=== PATIENT | female | born 1935 | race Caucasian/White ===

== ENCOUNTER → 2016-10-07 | Outpatient (REF) | payer MEDICARE, MEDICAID ==
[~2016-10-07] MED LIST: ASPI81TA83 OR; ATEN25TA OR; CALCIUM/VITAMIN D PO; CELE20TA OR; COLA100C2 OR; IBUP600T OR; LANTUS SOLOSTAR PEN SC; LOPERAMIDE PO; LORA0.5T OR; MAALSUS PO; MILKSUS OR; MIRALEX PO; MULTIVIT PO; NITRO STAT SL; PAIN325T OR; PLAV75TA2 OR; RANO5TAB OR; ROBISYP3 PO; ZOCO40TA OR
[2016-10-07 09:42] LABS: BASO % 0.4 % (0.0-1.0); EOS # 0.4 K/mm3 (0.0-0.50); LARGE UNSTAINED CELL # 0.3 K/mm3 (0.0-0.4); LARGE UNSTAINED CELL % 2.4 % (0.0-4.0); LYMPH # 3.8 K/mm3 (1.5-4.5); LYMPH % 32.5 % (24.0-44.0); MEAN CORPUSCULAR HGB CONC 32.4 g/dl (32.0-36.5); MEAN CORPUSCULAR VOLUME 92.7 fl (80.0-96.0); MONO # 0.6 K/mm3 (0.0-0.8); MONO % 5.7 % (0.0-5.0); PLATELET COUNT, AUTOMATED 157 k/mm3 (150-450); RED CELL DISTRIBUTION WIDTH 13.6 % (11.5-14.5); WHITE BLOOD COUNT 10.9 K/mm3 (4.0-10.0)
[2016-10-07 10:03] LABS: ALBUMIN 2.5 GM/DL (3.2-5.2); ALBUMIN/GLOBULIN RATIO 0.71 (1.00-1.93); ALKALINE PHOSPHATASE 63 U/L (45-117); ALT/SGPT 13 U/L (12-78); ANION GAP 10 MEQ/L (8-16); AST/SGOT 17 U/L (15-37); BILIRUBIN,TOTAL 0.3 MG/DL (0.2-1.0); BLOOD UREA NITROGEN 22 MG/DL (7-18); CALCIUM LEVEL 8.3 MG/DL (8.8-10.2); CARBON DIOXIDE LEVEL 29 MEQ/L (21-32); CHLORIDE LEVEL 105 MEQ/L (98-107); CHOLESTEROL LEVEL 128 MG/DL (<200); GLOMERULAR FILTRATION RATE > 60.0 (>32); GLUCOSE, FASTING 127 MG/DL (83-110); POTASSIUM SERUM 4.4 MEQ/L (3.5-5.1); SODIUM LEVEL 144 MEQ/L (136-145); TRIGLYCERIDES LEVEL 191 MG/DL (<150)
== END ==
LOC: SKLAB4 09:19
PROVIDERS: ATTEND Family Medicine
DX: E11.9 Type 2 diabetes mellitus without complications (principal); E03.9 Hypothyroidism, unspecified; I10 Essential (primary) hypertension

== ENCOUNTER → 2016-12-30 | Outpatient (REF) | payer MEDICARE, MEDICAID ==
[2016-12-30 08:50] LABS: ALBUMIN 2.4 GM/DL (3.2-5.2); ALBUMIN/GLOBULIN RATIO 0.59 (1.00-1.93); ALKALINE PHOSPHATASE 62 U/L (45-117); ALT/SGPT 14 U/L (12-78); ANION GAP 6 MEQ/L (8-16); AST/SGOT 16 U/L (15-37); BILIRUBIN,TOTAL 0.3 MG/DL (0.2-1.0); BLOOD UREA NITROGEN 23 MG/DL (7-18); CALCIUM LEVEL 8.3 MG/DL (8.8-10.2); CARBON DIOXIDE LEVEL 29 MEQ/L (21-32); CHLORIDE LEVEL 107 MEQ/L (98-107); CHOLESTEROL LEVEL 123 MG/DL (<200); CREATININE FOR GFR 0.88 MG/DL (0.55-1.02); GLOMERULAR FILTRATION RATE > 60.0 (>32); GLUCOSE, FASTING 120 MG/DL (83-110); SODIUM LEVEL 142 MEQ/L (136-145); TOTAL PROTEIN 6.5 GM/DL (6.4-8.2); TRIGLYCERIDES LEVEL 155 MG/DL (<150)
== END ==
LOC: SKLAB4 11:37
PROVIDERS: ATTEND Family Medicine
DX: I25.10 Atherosclerotic heart disease of native coronary artery without angina pectoris (principal); E11.9 Type 2 diabetes mellitus without complications; E78.5 Hyperlipidemia, unspecified

== ENCOUNTER → 2017-04-07 | Outpatient (REF) | payer MEDICARE, MEDICAID ==
[2017-04-07 08:53] LABS: BASO % 0.4 % (0.0-1.0); EOS # 0.4 K/mm3 (0.0-0.50); EOS % 4.7 % (0.0-3.0); LARGE UNSTAINED CELL # 0.3 K/mm3 (0.0-0.4); LARGE UNSTAINED CELL % 3.4 % (0.0-4.0); LYMPH # 3.4 K/mm3 (1.5-4.5); LYMPH % 36.1 % (24.0-44.0); MEAN CORPUSCULAR HEMOGLOBIN 30.7 pg (27.0-33.0); MEAN CORPUSCULAR HGB CONC 33.2 g/dl (32.0-36.5); MEAN CORPUSCULAR VOLUME 92.6 fl (80.0-96.0); MONO # 0.7 K/mm3 (0.0-0.8); MONO % 7.1 % (0.0-5.0); NEUTROPHILS # 4.5 K/mm3 (1.8-7.7); NEUTROPHILS % 48.3 % (36.0-66.0); PLATELET COUNT, AUTOMATED 178 k/mm3 (150-450); RED CELL DISTRIBUTION WIDTH 12.1 % (11.5-14.5); WHITE BLOOD COUNT 9.4 K/mm3 (4.0-10.0)
[2017-04-07 09:38] LABS: ALBUMIN 2.6 GM/DL (3.2-5.2); ALBUMIN/GLOBULIN RATIO 0.76 (1.00-1.93); ALKALINE PHOSPHATASE 57 U/L (45-117); ALT/SGPT 13 U/L (12-78); ANION GAP 9 MEQ/L (8-16); AST/SGOT 15 U/L (15-37); BILIRUBIN,TOTAL 0.2 MG/DL (0.2-1.0); BLOOD UREA NITROGEN 24 MG/DL (7-18); CALCIUM LEVEL 8.3 MG/DL (8.8-10.2); CARBON DIOXIDE LEVEL 27 MEQ/L (21-32); CHLORIDE LEVEL 106 MEQ/L (98-107); CHOLESTEROL LEVEL 115 MG/DL (<200); GLOMERULAR FILTRATION RATE > 60.0 (>32); GLUCOSE, FASTING 156 MG/DL (83-110); POTASSIUM SERUM 4.3 MEQ/L (3.5-5.1); SODIUM LEVEL 142 MEQ/L (136-145); TRIGLYCERIDES LEVEL 215 MG/DL (<150)
== END ==
LOC: SKLAB4 10:02
PROVIDERS: ATTEND Family Medicine
DX: E78.5 Hyperlipidemia, unspecified (principal); E11.9 Type 2 diabetes mellitus without complications; E03.9 Hypothyroidism, unspecified

== ENCOUNTER → 2017-06-02 | Outpatient (REF) | payer MEDICARE, MEDICAID ==
[2017-06-02 08:40] LABS: BASO % 0.3 % (0.0-1.0); EOS # 0.4 10^3/uL (0.0-0.50); IMMATURE GRANULOCYTE % 0.3 % (0-0); LYMPH % 32.9 % (24.0-44.0); MEAN CORPUSCULAR HEMOGLOBIN 30.1 pg (27.0-33.0); MEAN CORPUSCULAR HGB CONC 32.8 g/dl (32.0-36.5); MEAN CORPUSCULAR VOLUME 91.7 fl (80.0-96.0); MONO # 0.9 10^3/uL (0.0-0.8); MONO % 9.7 % (0.0-5.0); NEUTROPHILS # 4.8 10^3/uL (1.8-7.7); NEUTROPHILS % 52.8 % (36.0-66.0); PLATELET COUNT, AUTOMATED 145 10^3/uL (150-450); RED CELL DISTRIBUTION WIDTH 12.4 % (11.5-14.5); WHITE BLOOD COUNT 9.1 10^3/uL (4.0-10.0)
== END ==
LOC: SKLAB4 09:55
PROVIDERS: ATTEND Family Medicine
DX: E04.9 Nontoxic goiter, unspecified (principal)

== ENCOUNTER → 2017-07-07 | Outpatient (REF) | payer MEDICARE, MEDICAID ==
[2017-07-07 08:51] LABS: ALBUMIN 2.6 GM/DL (3.2-5.2); ALBUMIN/GLOBULIN RATIO 0.67 (1.00-1.93); ALKALINE PHOSPHATASE 67 U/L (45-117); ALT/SGPT 13 U/L (12-78); ANION GAP 7 MEQ/L (8-16); AST/SGOT 13 U/L (7-37); BILIRUBIN,TOTAL 0.2 MG/DL (0.2-1.0); BLOOD UREA NITROGEN 17 MG/DL (7-18); CALCIUM LEVEL 8.2 MG/DL (8.8-10.2); CARBON DIOXIDE LEVEL 29 MEQ/L (21-32); CHLORIDE LEVEL 104 MEQ/L (98-107); CHOLESTEROL LEVEL 119 MG/DL (<200); CREATININE FOR GFR 0.79 MG/DL (0.55-1.02); GLOMERULAR FILTRATION RATE > 60.0 (>32); GLUCOSE, FASTING 143 MG/DL (83-110); POTASSIUM SERUM 4.1 MEQ/L (3.5-5.1); SODIUM LEVEL 140 MEQ/L (136-145); TOTAL PROTEIN 6.5 GM/DL (6.4-8.2); TRIGLYCERIDES LEVEL 198 MG/DL (<150)
== END ==
LOC: SKLAB4 12:43
PROVIDERS: ATTEND Family Medicine
DX: G20 Parkinson's disease (principal); E11.9 Type 2 diabetes mellitus without complications; E78.5 Hyperlipidemia, unspecified

== ENCOUNTER → 2017-09-01 | Outpatient (REF) | payer MEDICARE, MEDICAID ==
[2017-09-01 10:09] LABS: BASO % 0.4 % (0.0-1.0); EOS # 0.3 10^3/uL (0.0-0.50); EOS % 2.9 % (0.0-3.0); HEMATOCRIT 39.2 % (36.0-47.0); HEMOGLOBIN 12.6 g/dl (12.0-16.0); IMMATURE GRANULOCYTE % 0.4 % (0-0); LYMPH % 29.1 % (24.0-44.0); MEAN CORPUSCULAR HEMOGLOBIN 29.9 pg (27.0-33.0); MEAN CORPUSCULAR HGB CONC 32.1 g/dl (32.0-36.5); MEAN CORPUSCULAR VOLUME 92.9 fl (80.0-96.0); MONO # 0.9 10^3/uL (0.0-0.8); MONO % 8.9 % (0.0-5.0); NEUTROPHILS % 58.3 % (36.0-66.0); PLATELET COUNT, AUTOMATED 160 10^3/uL (150-450); RED BLOOD COUNT 4.22 10^6/uL (4.00-5.40); RED CELL DISTRIBUTION WIDTH 12.5 % (11.5-14.5); WHITE BLOOD COUNT 10.3 10^3/uL (4.0-10.0)
== END ==
LOC: SKLAB4 12:24
DX: D64.9 Anemia, unspecified (principal); E03.9 Hypothyroidism, unspecified
CPT/HCPCS: 84443

== ENCOUNTER → 2017-10-13 | Outpatient (REF) | payer MEDICARE, MEDICAID ==
[2017-10-13 08:34] LABS: ALBUMIN 2.5 GM/DL (3.2-5.2); ALBUMIN/GLOBULIN RATIO 0.76 (1.00-1.93); ALKALINE PHOSPHATASE 66 U/L (45-117); ALT/SGPT 14 U/L (12-78); ANION GAP 7 MEQ/L (8-16); AST/SGOT 20 U/L (7-37); BILIRUBIN,TOTAL 0.2 MG/DL (0.2-1.0); BLOOD UREA NITROGEN 21 MG/DL (7-18); CALCIUM LEVEL 7.8 MG/DL (8.8-10.2); CARBON DIOXIDE LEVEL 28 MEQ/L (21-32); CHLORIDE LEVEL 107 MEQ/L (98-107); CHOLESTEROL LEVEL 119 MG/DL (<200); CHOLESTEROL RISK RATIO 3.838 (<5); GLOMERULAR FILTRATION RATE > 60.0 (>32); GLUCOSE, FASTING 122 MG/DL (70-100); HDL CHOLESTEROL 31 MG/DL (>40); NON-HDL-C 88 MG/DL; POTASSIUM SERUM 4.2 MEQ/L (3.5-5.1); SODIUM LEVEL 142 MEQ/L (136-145); TOTAL PROTEIN 5.8 GM/DL (6.4-8.2); TRIGLYCERIDES LEVEL 175 MG/DL (<150)
[2017-10-13 09:55] LABS: ESTIMATED AVERAGE GLUCOSE 163 MG/DL (60-110); HEMOGLOBIN A1c 7.3 %
== END ==
LOC: SKLAB4 10:54
DX: E78.5 Hyperlipidemia, unspecified (principal); E11.9 Type 2 diabetes mellitus without complications
CPT/HCPCS: 80053

== ENCOUNTER → 2018-01-05 | Outpatient (REF) | payer MEDICARE, MEDICAID ==
[2018-01-05 09:39] LABS: ALBUMIN 2.7 GM/DL (3.2-5.2); ALBUMIN/GLOBULIN RATIO 0.79 (1.00-1.93); ALKALINE PHOSPHATASE 72 U/L (45-117); ALT/SGPT 14 U/L (12-78); ANION GAP 7 MEQ/L (8-16); AST/SGOT 15 U/L (7-37); BILIRUBIN,TOTAL 0.3 MG/DL (0.2-1.0); BLOOD UREA NITROGEN 18 MG/DL (7-18); CALCIUM LEVEL 8.4 MG/DL (8.8-10.2); CARBON DIOXIDE LEVEL 29 MEQ/L (21-32); CHLORIDE LEVEL 107 MEQ/L (98-107); CHOLESTEROL LEVEL 123 MG/DL (<200); CHOLESTEROL RISK RATIO 4.392 (<5); GLOMERULAR FILTRATION RATE > 60.0 (>32); GLUCOSE, FASTING 109 MG/DL (70-100); HDL CHOLESTEROL 28 MG/DL (>40); LDL CHOLESTEROL 47.2 MG/DL (<100); NON-HDL-C 95 MG/DL; POTASSIUM SERUM 4.3 MEQ/L (3.5-5.1); SODIUM LEVEL 143 MEQ/L (136-145); TOTAL PROTEIN 6.1 GM/DL (6.4-8.2); TRIGLYCERIDES LEVEL 239 MG/DL (<150)
[2018-01-05 10:56] LABS: ESTIMATED AVERAGE GLUCOSE 166 MG/DL (60-110); HEMOGLOBIN A1c 7.4 %
== END ==
LOC: SKLAB4 09:32
DX: E78.5 Hyperlipidemia, unspecified (principal); E11.9 Type 2 diabetes mellitus without complications
CPT/HCPCS: 80053

== ENCOUNTER → 2018-03-09 | Outpatient (REF) | payer MEDICARE, MEDICAID ==
[2018-03-09 08:34] LABS: BASO % 0.3 % (0.0-1.0); EOS # 0.1 10^3/uL (0.0-0.50); HEMATOCRIT 39.2 % (36.0-47.0); IMMATURE GRANULOCYTE % 0.4 % (0-3.0); LYMPH # 2.8 10^3/uL (1.5-4.5); LYMPH % 24.5 % (24.0-44.0); MEAN CORPUSCULAR HEMOGLOBIN 30.3 pg (27.0-33.0); MEAN CORPUSCULAR HGB CONC 33.2 g/dl (32.0-36.5); MEAN CORPUSCULAR VOLUME 91.4 fl (80.0-96.0); MONO % 8.4 % (0.0-5.0); NEUTROPHILS # 7.6 10^3/uL (1.8-7.7); NEUTROPHILS % 65.4 % (36.0-66.0); PLATELET COUNT, AUTOMATED 159 10^3/uL (150-450); RED BLOOD COUNT 4.29 10^6/uL (4.00-5.40); RED CELL DISTRIBUTION WIDTH 12.8 % (11.5-14.5); WHITE BLOOD COUNT 11.6 10^3/uL (4.0-10.0)
== END ==
LOC: SKLAB4 09:53
DX: G20 Parkinson's disease (principal)
CPT/HCPCS: 84443

== ENCOUNTER → 2018-03-10 | Outpatient (REF) | payer MEDICARE, MEDICAID ==
[2018-03-10 07:32] LABS: HEMATOCRIT 42.9 % (36.0-47.0); MEAN CORPUSCULAR HEMOGLOBIN 30.1 pg (27.0-33.0); MEAN CORPUSCULAR HGB CONC 32.6 g/dl (32.0-36.5); MEAN CORPUSCULAR VOLUME 92.3 fl (80.0-96.0); PLATELET COUNT, AUTOMATED 185 10^3/uL (150-450); RED BLOOD COUNT 4.65 10^6/uL (4.00-5.40); WHITE BLOOD COUNT 11.2 10^3/uL (4.0-10.0)
== END ==
LOC: SKLAB4 08:00
DX: I10 Essential (primary) hypertension (principal)
CPT/HCPCS: 36415

== ENCOUNTER → 2018-07-06 | Outpatient (REF) | payer MEDICARE, MEDICAID ==
[2018-07-06 09:05] LABS: ALBUMIN 2.6 GM/DL (3.2-5.2); ALBUMIN/GLOBULIN RATIO 0.63 (1.00-1.93); ALKALINE PHOSPHATASE 72 U/L (45-117); ALT/SGPT 16 U/L (12-78); ANION GAP 7 MEQ/L (8-16); AST/SGOT 17 U/L (7-37); BILIRUBIN,TOTAL 0.3 MG/DL (0.2-1.0); BLOOD UREA NITROGEN 19 MG/DL (7-18); CALCIUM LEVEL 8.8 MG/DL (8.8-10.2); CARBON DIOXIDE LEVEL 25 MEQ/L (21-32); CHLORIDE LEVEL 104 MEQ/L (98-107); CHOLESTEROL LEVEL 129 MG/DL (<200); CHOLESTEROL RISK RATIO 4.161 (<5); GLOMERULAR FILTRATION RATE > 60.0 (>32); GLUCOSE, FASTING 120 MG/DL (70-100); HDL CHOLESTEROL 31 MG/DL (>40); LDL CHOLESTEROL 55 MG/DL (<100); NON-HDL-C 98 MG/DL; POTASSIUM SERUM 4.2 MEQ/L (3.5-5.1); SODIUM LEVEL 136 MEQ/L (136-145); TOTAL PROTEIN 6.7 GM/DL (6.4-8.2); TRIGLYCERIDES LEVEL 216 MG/DL (<150)
[2018-07-06 12:10] LABS: ESTIMATED AVERAGE GLUCOSE 194 MG/DL (60-110); HEMOGLOBIN A1c 8.4 %
== END ==
LOC: SKLAB4 09:45
DX: E78.5 Hyperlipidemia, unspecified (principal); E11.9 Type 2 diabetes mellitus without complications
CPT/HCPCS: 80053

== ENCOUNTER → 2018-09-07 | Outpatient (REF) | payer MEDICARE, MEDICAID ==
[2018-09-07 07:47] LABS: BASO % 0.3 % (0.0-1.0); EOS # 0.4 10^3/uL (0.0-0.50); EOS % 3.9 % (0.0-3.0); HEMATOCRIT 40.4 % (36.0-47.0); HEMOGLOBIN 13.1 g/dl (12.0-15.5); LYMPH # 3.5 10^3/uL (1.5-4.5); LYMPH % 38.1 % (24.0-44.0); MEAN CORPUSCULAR HEMOGLOBIN 30.3 pg (27.0-33.0); MEAN CORPUSCULAR HGB CONC 32.4 g/dl (32.0-36.5); MEAN CORPUSCULAR VOLUME 93.3 fl (80.0-96.0); MONO % 10.5 % (0.0-5.0); NEUTROPHILS # 4.3 10^3/uL (1.8-7.7); NEUTROPHILS % 46.9 % (36.0-66.0); PLATELET COUNT, AUTOMATED 166 10^3/uL (150-450); RED BLOOD COUNT 4.33 10^6/uL (4.00-5.40); WHITE BLOOD COUNT 9.2 10^3/uL (4.0-10.0)
== END ==
LOC: SKLAB4 10:07
PROVIDERS: ATTEND Family Medicine
DX: F03.90 Unspecified dementia, unspecified severity, without behavioral disturbance, psychotic disturbance, mood disturbance, and anxiety (principal); G20 Parkinson's disease; I10 Essential (primary) hypertension

== ENCOUNTER → 2018-10-12 | Outpatient (REF) | payer MEDICARE, MEDICAID ==
[2018-10-12 08:14] LABS: HEMOGLOBIN A1c 9.6 %
[2018-10-12 08:25] LABS: ALBUMIN 2.8 GM/DL (3.2-5.2); ALT/SGPT 14 U/L (12-78); BILIRUBIN,TOTAL 0.3 MG/DL (0.2-1.0); BLOOD UREA NITROGEN 24 MG/DL (7-18); CALCIUM LEVEL 8.2 MG/DL (8.8-10.2); CARBON DIOXIDE LEVEL 31 MEQ/L (21-32); CHLORIDE LEVEL 103 MEQ/L (98-107); CHOLESTEROL LEVEL 141 MG/DL (<200); CHOLESTEROL RISK RATIO 4.548 (<5); CREATININE FOR GFR 0.88 MG/DL (0.55-1.30); GLOMERULAR FILTRATION RATE > 60.0 (>32); GLUCOSE, FASTING 121 MG/DL (70-100); HDL CHOLESTEROL 31 MG/DL (>40); LDL CHOLESTEROL 61 MG/DL (<100); NON-HDL-C 110 MG/DL; POTASSIUM SERUM 4.4 MEQ/L (3.5-5.1); SODIUM LEVEL 141 MEQ/L (136-145); TOTAL PROTEIN 6.2 GM/DL (6.4-8.2); TRIGLYCERIDES LEVEL 245 MG/DL (<150)
== END ==
LOC: SKLAB4 09:36
PROVIDERS: ATTEND Family Medicine
DX: E78.5 Hyperlipidemia, unspecified (principal); E11.9 Type 2 diabetes mellitus without complications; G20 Parkinson's disease

== ENCOUNTER → 2019-01-04 | Outpatient (REF) | payer MEDICARE, MEDICAID ==
[2019-01-04 11:01] LABS: ALBUMIN 2.5 GM/DL (3.2-5.2); ALT/SGPT 12 U/L (12-78); BILIRUBIN,TOTAL 0.3 MG/DL (0.2-1.0); BLOOD UREA NITROGEN 22 MG/DL (7-18); CALCIUM LEVEL 8.3 MG/DL (8.8-10.2); CARBON DIOXIDE LEVEL 25 MEQ/L (21-32); CHLORIDE LEVEL 105 MEQ/L (98-107); CHOLESTEROL LEVEL 126 MG/DL (<200); CHOLESTEROL RISK RATIO 4.064 (<5); CREATININE FOR GFR 0.91 MG/DL (0.55-1.30); GLOMERULAR FILTRATION RATE > 60.0 (>32); GLUCOSE, FASTING 214 MG/DL (70-100); HDL CHOLESTEROL 31 MG/DL (>40); LDL CHOLESTEROL 62 MG/DL (<100); NON-HDL-C 95 MG/DL; POTASSIUM SERUM 4.4 MEQ/L (3.5-5.1); SODIUM LEVEL 138 MEQ/L (136-145); TOTAL PROTEIN 6.3 GM/DL (6.4-8.2); TRIGLYCERIDES LEVEL 167 MG/DL (<150)
[2019-01-04 11:37] LABS: HEMOGLOBIN A1c 8.9 %
== END ==
LOC: SKLAB4 11:46
PROVIDERS: ATTEND Family Medicine
DX: E11.9 Type 2 diabetes mellitus without complications (principal); E78.5 Hyperlipidemia, unspecified; G20 Parkinson's disease

== ENCOUNTER → 2019-03-01 | Outpatient (REF) | payer MEDICARE, MEDICAID ==
[2019-03-01 08:34] LABS: BASO # 0.1 10^3/uL (0.0-0.2); BASO % 0.5 % (0.0-1.0); EOS # 0.2 10^3/uL (0.0-0.50); EOS % 2.3 % (0.0-3.0); HEMATOCRIT 41.6 % (36.0-47.0); HEMOGLOBIN 13.8 g/dl (12.0-15.5); LYMPH % 30.5 % (24.0-44.0); MEAN CORPUSCULAR HEMOGLOBIN 30.9 pg (27.0-33.0); MEAN CORPUSCULAR HGB CONC 33.2 g/dl (32.0-36.5); MEAN CORPUSCULAR VOLUME 93.1 fl (80.0-96.0); MONO # 0.9 10^3/uL (0.0-0.8); MONO % 9.3 % (0.0-5.0); NEUTROPHILS # 5.6 10^3/uL (1.8-7.7); NEUTROPHILS % 56.9 % (36.0-66.0); PLATELET COUNT, AUTOMATED 169 10^3/uL (150-450); RED BLOOD COUNT 4.47 10^6/uL (4.00-5.40); WHITE BLOOD COUNT 9.8 10^3/uL (4.0-10.0)
== END ==
LOC: SKLAB4 09:51
PROVIDERS: ATTEND Family Medicine
DX: E03.9 Hypothyroidism, unspecified (principal); G20 Parkinson's disease

== ENCOUNTER → 2019-03-29 | Outpatient (REF) | payer MEDICARE, MEDICAID ==
[2019-03-29 14:07] LABS: HEMATOCRIT 43.5 % (36.0-47.0); HEMOGLOBIN 13.7 g/dl (12.0-15.5); MEAN CORPUSCULAR HEMOGLOBIN 30.6 pg (27.0-33.0); MEAN CORPUSCULAR HGB CONC 31.5 g/dl (32.0-36.5); MEAN CORPUSCULAR VOLUME 97.1 fl (80.0-96.0); PLATELET COUNT, AUTOMATED 159 10^3/uL (150-450); RED BLOOD COUNT 4.48 10^6/uL (4.00-5.40)
[2019-03-29 14:31] LABS: BLOOD UREA NITROGEN 26 MG/DL (7-18); CALCIUM LEVEL 8.4 MG/DL (8.8-10.2); CARBON DIOXIDE LEVEL 28 MEQ/L (21-32); CHLORIDE LEVEL 105 MEQ/L (98-107); CREATININE FOR GFR 0.92 MG/DL (0.55-1.30); GLOMERULAR FILTRATION RATE > 60.0 (>32); GLUCOSE, FASTING 181 MG/DL (70-100); POTASSIUM SERUM 4.1 MEQ/L (3.5-5.1); SODIUM LEVEL 139 MEQ/L (136-145)
== END ==
LOC: SKLAB4 09:25
PROVIDERS: ATTEND Family Medicine
DX: R53.83 Other fatigue (principal); R63.8 Other symptoms and signs concerning food and fluid intake

== ENCOUNTER → 2019-03-30 | Outpatient (REF) | payer MEDICARE, MEDICAID ==
[~2019-03-30] MED LIST changes: +ACET1TAB55 PO; +ALA1CRE TOP; +APAP325T4 PO; +ASPI81TA85 PO; +BISA10SU27 PR; +ENEMENE PR; +INSULADS INJ; +LOPE2TAB12 PO; +MAALSUS19 PO; +METO1TAB32 PO; +MOM30SS PO; +MOXI400T11 PO; +NITR0.4S14 SL; +PREPCRE PR; +SENN-3 PO; +ZINC60OI TOP
[2019-03-30 15:14] LABS: APPEARANCE, URINE HAZY (CLEAR); BACTERIA, URINE AUTO NEGATIVE (NEGATIVE); BILIRUBIN, URINE AUTO NEGATIVE (NEGATIVE); BLOOD, URINE BLOOD 1+ (NEGATIVE); COLOR, URINE YELLOW (YELLOW); GLUCOSE, URINE (UA) AUTO 1+ mg/dL (NEGATIVE); KETONE, URINE AUTO TRACE mg/dL (NEGATIVE); LEUKOCYTE ESTERASE, URINE AUTO NEGATIVE (NEGATIVE); NITRITE, URINE AUTO NEGATIVE (NEGATIVE); PROTEIN, URINE AUTO 1+ mg/dL (NEGATIVE); RBC, URINE AUTO 6 /HPF (0-3); SQUAMOUS EPITHELIAL CELL UR AU 2 /HPF (0-6); UROBILINOGEN, URINE AUTO 0.2 mg/dL (0.0-2.0); WBC, URINE AUTO 28 /HPF (0-3)
== END ==
LOC: SKLAB4 14:35
PROVIDERS: ATTEND Family Medicine
DX: R63.0 Anorexia (principal); Z79.899 Other long term (current) drug therapy

== ENCOUNTER → 2019-04-05 | Outpatient (REF) | payer MEDICARE, MEDICAID ==
[~2019-04-05] MED LIST changes: -ACET1TAB55 PO; -ALA1CRE TOP; -APAP325T4 PO; -ASPI81TA85 PO; -BISA10SU27 PR; -ENEMENE PR; -INSULADS INJ; -LOPE2TAB12 PO; -MAALSUS19 PO; -METO1TAB32 PO; -MOM30SS PO; -MOXI400T11 PO; -NITR0.4S14 SL; -PREPCRE PR; -SENN-3 PO; -ZINC60OI TOP
[2019-04-05 09:57] LABS: ALBUMIN 2.7 GM/DL (3.2-5.2); ALT/SGPT 13 U/L (12-78); BILIRUBIN,TOTAL 0.3 MG/DL (0.2-1.0); BLOOD UREA NITROGEN 20 MG/DL (7-18); CALCIUM LEVEL 8.6 MG/DL (8.8-10.2); CARBON DIOXIDE LEVEL 33 MEQ/L (21-32); CHLORIDE LEVEL 103 MEQ/L (98-107); CHOLESTEROL LEVEL 135 MG/DL (<200); CREATININE FOR GFR 0.83 MG/DL (0.55-1.30); GLOMERULAR FILTRATION RATE > 60.0 (>32); GLUCOSE, FASTING 153 MG/DL (70-100); HDL CHOLESTEROL 34 MG/DL (>40); LDL CHOLESTEROL 65 MG/DL (<100); NON-HDL-C 101 MG/DL; POTASSIUM SERUM 4.2 MEQ/L (3.5-5.1); SODIUM LEVEL 141 MEQ/L (136-145); TOTAL PROTEIN 6.3 GM/DL (6.4-8.2); TRIGLYCERIDES LEVEL 180 MG/DL (<150)
[2019-04-05 10:18] LABS: HEMOGLOBIN A1c 9.4 %
== END ==
LOC: SKLAB4 09:48
PROVIDERS: ATTEND Family Medicine
DX: E11.9 Type 2 diabetes mellitus without complications (principal); I10 Essential (primary) hypertension; E78.5 Hyperlipidemia, unspecified

== ENCOUNTER → 2019-04-21 | Outpatient (REF) | payer MEDICARE, MEDICAID ==
[~2019-04-21] MED LIST changes: +ACET1TAB55 PO; +ALA1CRE TOP; +APAP325T4 PO; +ASPI81TA85 PO; +BISA10SU27 PR; +ENEMENE PR; +INSULADS INJ; +LOPE2TAB12 PO; +MAALSUS19 PO; +METO1TAB32 PO; +MOM30SS PO; +MOXI400T11 PO; +NITR0.4S14 SL; +PREPCRE PR; +SENN-3 PO; +ZINC60OI TOP
[2019-04-21 13:27] LABS: HEMATOCRIT 39.5 % (36.0-47.0); HEMOGLOBIN 12.4 g/dl (12.0-15.5); MEAN CORPUSCULAR HGB CONC 31.4 g/dl (32.0-36.5); MEAN CORPUSCULAR VOLUME 95.4 fl (80.0-96.0); PLATELET COUNT, AUTOMATED 122 10^3/uL (150-450); RED BLOOD COUNT 4.14 10^6/uL (4.00-5.40); WHITE BLOOD COUNT 12.9 10^3/uL (4.0-10.0)
[2019-04-21 13:56] LABS: CALCIUM LEVEL 8.4 MG/DL (8.8-10.2); CREATININE FOR GFR 1.29 MG/DL (0.55-1.30); GLOMERULAR FILTRATION RATE 41.8 (>32); POTASSIUM SERUM 4.9 MEQ/L (3.5-5.1); THYROID STIMULATING HORMONE 0.941 uIU/ML (0.358-3.740)
[2019-04-21 14:37] LABS: APPEARANCE, URINE CLOUDY (CLEAR); BACTERIA, URINE AUTO 1+ (NEGATIVE); BILIRUBIN, URINE AUTO NEGATIVE (NEGATIVE); BLOOD, URINE BLOOD 2+ (NEGATIVE); COLOR, URINE YELLOW (YELLOW); GLUCOSE, URINE (UA) AUTO 3+ mg/dL (NEGATIVE); KETONE, URINE AUTO NEGATIVE (NEGATIVE); LEUKOCYTE ESTERASE, URINE AUTO 3+ (NEGATIVE); NITRITE, URINE AUTO NEGATIVE (NEGATIVE); PROTEIN, URINE AUTO 2+ mg/dL (NEGATIVE); RBC, URINE AUTO 6 /HPF (0-3); SPECIFIC GRAVITY URINE AUTO 1.023 (1.002-1.035); SQUAMOUS EPITHELIAL CELL UR AU 15 /HPF (0-6); UROBILINOGEN, URINE AUTO 0.2 mg/dL (0.0-2.0); WBC, URINE AUTO TNTC /HPF (0-3)
== END ==
LOC: SKLAB4 10:51
PROVIDERS: ATTEND Family Medicine
DX: R63.4 Abnormal weight loss (principal); E11.9 Type 2 diabetes mellitus without complications; Z79.899 Other long term (current) drug therapy

== ENCOUNTER → 2019-05-05 | Outpatient (REF) | payer MEDICARE, MEDICAID ==
[~2019-05-05] MED LIST changes: -ACET1TAB55 PO; -ALA1CRE TOP; -APAP325T4 PO; -ASPI81TA85 PO; -BISA10SU27 PR; -ENEMENE PR; -INSULADS INJ; -LOPE2TAB12 PO; -MAALSUS19 PO; -METO1TAB32 PO; -MOM30SS PO; -MOXI400T11 PO; -NITR0.4S14 SL; -PREPCRE PR; -SENN-3 PO; -ZINC60OI TOP
[2019-05-05 08:09] LABS: CALCIUM LEVEL 8.5 MG/DL (8.8-10.2); CREATININE FOR GFR 0.99 MG/DL (0.55-1.30); GLOMERULAR FILTRATION RATE 56.8 (>32); POTASSIUM SERUM 3.9 MEQ/L (3.5-5.1)
== END ==
LOC: SKLAB4 05-04 14:50
PROVIDERS: ATTEND Family Medicine
DX: E86.0 Dehydration (principal)

== ENCOUNTER → 2019-07-05 | Outpatient (REF) | payer MEDICARE, MEDICAID ==
[2019-07-05 09:54] LABS: ALBUMIN 2.7 GM/DL (3.2-5.2); BILIRUBIN,TOTAL 0.3 MG/DL (0.2-1.0); CALCIUM LEVEL 8.8 MG/DL (8.8-10.2); CHOLESTEROL RISK RATIO 4.444 (<5); CREATININE FOR GFR 1.02 MG/DL (0.55-1.30); GLOMERULAR FILTRATION RATE 54.8 (>32); TOTAL PROTEIN 6.3 GM/DL (6.4-8.2)
== END ==
LOC: SKLAB4 10:16
PROVIDERS: ATTEND Family Medicine
DX: E78.5 Hyperlipidemia, unspecified (principal); E11.9 Type 2 diabetes mellitus without complications; Z79.899 Other long term (current) drug therapy

== ENCOUNTER 2019-08-16 18:00 | Inpatient (IN) | payer MEDICARE, MEDICAID ==
[~2019-08-16] VITALS: Ht 161.3 cm; Wt 91.0 kg
[~2019-08-16 18:00] MED LIST changes: -ACET1TAB55 PO; -ALA1CRE TOP; -APAP325T4 PO; -ASPI81TA85 PO; -BISA10SU27 PR; -ENEMENE PR; -INSULADS INJ; -LOPE2TAB12 PO; -MAALSUS19 PO; -METO1TAB32 PO; -MOM30SS PO; -NITR0.4S14 SL; -PREPCRE PR; -SENN-3 PO; -ZINC60OI TOP
[2019-08-16] MEDS ORDERED: SENN-3 PO (18:45)
[2019-08-16] MEDS ORDERED: APAP325T4 PO (18:45)
[2019-08-16] MEDS ORDERED: ENEMENE PR (18:45)
[2019-08-16] MEDS ORDERED: ASPI81TA85 PO (18:45)
[2019-08-16] MEDS ORDERED: LOPE2TAB12 PO (18:45)
[2019-08-16] MEDS ORDERED: BISA10SU27 PR (18:45)
[2019-08-16] MEDS ORDERED: MAALSUS19 PO (18:45)
[2019-08-16] MEDS ORDERED: NITR0.4S14 SL (18:45)
[2019-08-16] MEDS ORDERED: ZINC60OI TOP (18:45)
[2019-08-16] MEDS ORDERED: ACET1TAB55 PO (18:45)
[2019-08-16] MEDS ORDERED: INSULADS INJ (18:45)
[2019-08-16] MEDS ORDERED: METO1TAB32 PO (18:45)
[2019-08-16] MEDS ORDERED: ALA1CRE TOP (18:45)
[2019-08-16] MEDS ORDERED: PREPCRE PR (18:45)
[2019-08-16] MEDS ORDERED: MOM30SS PO (18:45)
[2019-08-16 19:36] LABS: BASO % 0.1 % (0.0-1.0); HEMATOCRIT 53.6 % (36.0-47.0); HEMOGLOBIN 16.4 g/dl (12.0-15.5); LYMPH # 1.6 10^3/uL (1.5-5.0); LYMPH % 11.7 % (24.0-44.0); MEAN CORPUSCULAR HEMOGLOBIN 29.8 pg (27.0-33.0); MEAN CORPUSCULAR HGB CONC 30.6 g/dl (32.0-36.5); MEAN CORPUSCULAR VOLUME 97.3 fl (80.0-96.0); MONO # 0.8 10^3/uL (0.0-0.8); MONO % 5.8 % (0.0-5.0); NEUTROPHILS # 11.3 10^3/uL (1.5-8.5); PLATELET COUNT, AUTOMATED 177 10^3/uL (150-450); RED BLOOD COUNT 5.51 10^6/uL (4.00-5.40); WHITE BLOOD COUNT 13.8 10^3/uL (4.0-10.0)
[2019-08-16 19:44] LABS: APPEARANCE, URINE CLEAR (CLEAR); BACTERIA, URINE AUTO NEGATIVE (NEGATIVE); BILIRUBIN, URINE AUTO NEGATIVE (NEGATIVE); BLOOD, URINE BLOOD NEGATIVE (NEGATIVE); COLOR, URINE YELLOW (YELLOW); GLUCOSE, URINE (UA) AUTO NEGATIVE (NEGATIVE); KETONE, URINE AUTO NEGATIVE (NEGATIVE); LEUKOCYTE ESTERASE, URINE AUTO NEGATIVE (NEGATIVE); MUCUS, URINE SMALL (NEGATIVE); NITRITE, URINE AUTO NEGATIVE (NEGATIVE); PROTEIN, URINE AUTO 1+ mg/dL (NEGATIVE); RBC, URINE AUTO 1 /HPF (0-3); SQUAMOUS EPITHELIAL CELL UR AU 0 /HPF (0-6); UROBILINOGEN, URINE AUTO 0.2 mg/dL (0.0-2.0); WBC, URINE AUTO 6 /HPF (0-3)
--- NOTE | 2019-08-16 19:44 | REP ---
Clinical: Fever. Comparison: 04/25/2013. Findings: Examination is limited by portable technique, underpenetration and positioning. Stable mild cardiomegaly and diffuse chronic interstitial changes are again noted. No obvious focal consolidation, effusion, or pneumothorax. Skeletal structures demonstrate osteopenia and degenerative changes. Impression: Chronic stable changes. No obvious focal consolidation. Electronically Signed by Michael Gasca MD 08/16/2019 07:36 P
[2019-08-16 20:03] LABS: ALBUMIN 3.1 GM/DL (3.2-5.2); BILIRUBIN,DIRECT 0.1 MG/DL (0.0-0.2); BILIRUBIN,TOTAL 0.5 MG/DL (0.2-1.0); CALCIUM LEVEL 9.5 MG/DL (8.8-10.2); CREATININE FOR GFR 1.96 MG/DL (0.55-1.30); GLOMERULAR FILTRATION RATE 25.8 (>32); POTASSIUM SERUM 4.6 MEQ/L (3.5-5.1); TOTAL PROTEIN 7.1 GM/DL (6.4-8.2)
[2019-08-16] MEDS ORDERED: POTASSIUM CHLORIDE 10 MEQ SR TABLET PO ONE (20:15)
[2019-08-16] MEDS ORDERED: HumuLIN R (REGULAR) INSULIN (NovoLIN R) **100U/ML** PER UNIT IV ONE ×2 (20:15→22:00)
[2019-08-16] MEDS ORDERED: NS 500 ML IV ONE ×2 (20:15→20:30)
[2019-08-16] MEDS ORDERED: cefTRIAXone SOD 1 GM in D5W MINI-BAG PLUS 50 ML IV ONE (20:30)
[2019-08-16] MEDS ORDERED: diphenhydrAMINE INJ 50MG/ML VIAL (J1200) IV STA (20:30)
[2019-08-16 20:53] LABS: INFLUENZA A AMPLIFICATION NEGATIVE (NEGATIVE); INFLUENZA B AMPLIFICATION NEGATIVE (NEGATIVE)
[2019-08-16] MEDS ORDERED: NS 1,000 ML IV ONE (21:45)
[2019-08-16] MEDS ORDERED: KCL 10MEQ/100ML SWI (KRUN) 10 MEQ in IV 1 EA IV ONE (22:00)
[2019-08-16 22:14] LABS: HEMATOCRIT 55.1 % (36.0-47.0); HEMOGLOBIN 16.7 g/dl (12.0-15.5); MEAN CORPUSCULAR HEMOGLOBIN 29.5 pg (27.0-33.0); MEAN CORPUSCULAR HGB CONC 30.3 g/dl (32.0-36.5); MEAN CORPUSCULAR VOLUME 97.3 fl (80.0-96.0); PLATELET COUNT, AUTOMATED 190 10^3/uL (150-450); RED BLOOD COUNT 5.66 10^6/uL (4.00-5.40); WHITE BLOOD COUNT 15.3 10^3/uL (4.0-10.0)
--- NOTE | 2019-08-16 22:14 | HPEPDOC ---
[facility] Medical History & Physical Date of Admission Aug 16, 2019 Date of Service: Aug 16, 2019 History and Physical CHIEF COMPLAINT: Sent from [facility] for fever and elevated glucose HISTORY OF PRESENT ILLNESS: 83-year-old female with past medical history dementia, hypertension, hyperlipidemia and diabetes mellitus presents from [facility] for fever and hyperglycemia. Patient is profoundly demented, will not speak/answer questions or follow commands. Information obtained from ED staff and electronic medical record. Patient was found to have glucose of 882 in the ED, with other labs consistent with dehydration, hypernatremia and acute kidney injury. Patient has so far received 18 units of IV insulin with 20 mEq of oral potassium and a 1 L normal saline bolus. Patient is laying in bed, agitated , eyes closed, but patient is awake. PAST MEDICAL HISTORY: 1. dementia. 2. Hypertension. 3. Hyperlipidemia. 4. Diabetes mellitus PAST SURGICAL HISTORY: 1. Unable to obtain. SOCIAL HISTORY: Unable to obtain FAMILY HISTORY: Unable to obtain ALLERGIES: Please see below. REVIEW OF SYSTEMS: Unable to obtain HOME MEDICATIONS: Please see below. PHYSICAL EXAMINATION: VITAL SIGNS: Please see below. GENERAL: No distress HEENT: dry mucous membranes NECK: Supple CARDIOVASCULAR EXAMINATION: S1, S2, tachycardic RESPIRATORY EXAMINATION: Basilar rhonchi, no wheezing ABDOMINAL EXAMINATION: Soft, mild tenderness to palpation, nondistended, positive bowel sounds EXTREMITIES: Range of motion intact SKIN: No rash NEUROLOGICAL EXAMINATION: no focal deficits PSYCHIATRIC EXAMINATION: agitated LABORATORY DATA: See below. IMAGING: Chest x-ray negative for acute pathology MICROBIOLOGY: Please see below. ASSESSMENT: 83-year-old female with past medical history of dementia, hypertension, hyperlipidemia and diabetes mellitus presents from [facility] with hyperglycemic hyperosmolar state. PLAN: 1. Hyperglycemic hyperosmolar state. Received regular insulin 18 units IV 1 followed by regular insulin 16 units IV 1 in the ED, ordered to receive 2 units of normal saline bolus followed by potassium chloride 20 mEq and half normal saline at 250 mL per hour. We'll be cautious with further insulin given acute kidney injury, repeat labs pending, hourly fingersticks, will provide further insulin based on patient's needs, ICU monitoring for now. Every 4 hours BMP 2. Hypernatremia. Corrected sodium is at least 159, ordered to receive 2 units of normal saline bolus followed by half-normal saline infusion at 250 and most per hour, every 4 hours BMP. 3. Acute kidney injury. Continue IV fluids as described above, likely prerenal. 4. Dementia. Unknown if current mentation is baseline or worsened, we'll monitor with treatment. 5. Hypertension. Continue metoprolol DVT prophylaxis: Heparin subcutaneous GI prophylaxis: Not needed Vital Signs Vital Signs Date Time Temp Pulse Resp B/P (MAP) Pulse Ox O2 Delivery O2 Flow Rate FiO2 08/16/19 21:30 114 169/76 (107) 90 08/16/19 18:27 100.3 13 Room Air Laboratory Data Labs 24H Laboratory Tests 2 08/16/19 19:17: Immature Granulocyte % (Auto) 0.4, Neutrophils (%) (Auto) 82.0H, Lymphocytes (%) (Auto) 11.7L, Monocytes (%) (Auto) 5.8H, Eosinophils (%) (Auto) 0.0, Basophils (%) (Auto) 0.1, Neutrophils # (Auto) 11.3H, Lymphocytes # (Auto) 1.6, Monocytes # (Auto) 0.8, Eosinophils # (Auto) 0.0, Basophils # (Auto) 0.0, Nucleated Red Blood Cells % (auto) 0.0, Urine Color YELLOW, Urine Appearance CLEAR, Urine pH 6.0, Urine Specific [place] 1.020, Urine Protein 1+H, Urine Glucose (Auto)(UA) NEGATIVE, Urine Ketones (Auto) NEGATIVE, Urine Blood NEGATIVE, Urine Nitrite NEGATIVE, Urine Bilirubin NEGATIVE, Urine Urobilinogen 0.2, Urine Leukocyte Esterase (Auto) NEGATIVE, Urine WBC (Auto) 6H, Urine RBC (Auto) 1, Urine Hyaline Casts (Auto) 0, Urine Bacteria (Auto) NEGATIVE, Urine Squamous Epithelial Cells 0, Urine Mucus (Auto) SMALL, Urine Sperm (Auto) , Anion Gap 11, Glomerular Filtration Rate 25.8L, Lactic Acid Level 3.1*H, Calcium Level 9.5, Total Bilirubin 0.5, Direct Bilirubin 0.1, Aspartate Amino Transf (AST/SGOT) 19, Alanine Aminotransferase (ALT/SGPT) 13, Alkaline Phosphatase 74, Total Protein 7.1, Albumin 3.1L, Albumin/Globulin Ratio 0.78L, Influenza Type A (RT-PCR) NEGATIVE, Influenza Type B (RT-PCR) NEGATIVE CBC/BMP Laboratory Tests 08/16/19 19:17 Microbiology Microbiology 08/16/19 Urine Culture, Received Pending 08/16/19 Blood Culture, Received Pending Home Medications Scheduled Aspirin (Aspir 81) 81 Mg Tablet.dr, 81 MG PO DAILY Bisacodyl (Bisacodyl) 10 Mg Supp.rect, 10 MG CA DAILY Insulin Glargine (Lantus) 100 Unit/1 Ml Vial, 14 UNIT INJ DAILY Metoprolol Succinate (Metoprolol Succinate) 25 Mg Tab.er.24h, 25 MG PO DAILY Milk Of Magnesia (Milk of Magnesia) 2,400 Mg/10 Ml Oral.susp, 10 ML PO DAILY Zinc Oxide (Zinc Oxide 20% Oint) 56.7 Gm Oint...g., 1 APPLIC TOP BID APPLY TO ALL DENUDED/ EXCORIATED AREAS OF SKIN Scheduled PRN Acetaminophen (Acetaminophen) 325 Mg Tablet, 325 MG PO for BID MORNING AND NIGHT FOR PAIN Acetaminophen (Acetaminophen) 325 Mg Tablet, 650 MG PO Q4H PRN for PAIN Hydrocortisone (Ala Jonathan) 1% Cream..g., 1 APPFUL TOP TID PRN for ITCHING Loperamide HCl (Imodium A-D) 2 Mg Tablet, 2 MG PO Q6H PRN for AFTER EACH LOOSE STOOL Mag Hydrox/Aluminum Hyd/Simeth (Maalox Maximum Strength Susp) 355 Ml Oral.susp, 30 ML PO Q4H PRN for NAUSEA Nitroglycerin (Nitroglycerin) 0.4 Mg Tab.subl, 0.4 MG SL NITRO PRN for CHEST PAIN Phenyleph/Pramoxin/Glycr/W.pet (Preparation H Cream) 26 Gm Cream..g., 1 APPLIC CA BID PRN for HEMORRHOIDS Sennosides/Docusate Sodium (Sennosides-Docusate Sodium Tab) 1 Each Tablet, 2 TAB PO BID PRN for CONSTIPATION Sodium Phosphate,Kendall-Dibasic (Enema) 133 Ml Enema, 1 CHARO CA DAILY PRN for CONSTIPATION Allergies Coded Allergies: codeine (Verified Allergy, Severe, SOB, 08/16/19) Influenza Virus Vaccines (Verified Allergy, Unknown, 08/16/19) Penicillins (Verified Allergy, Unknown, 08/16/19) Sulfa (Sulfonamide Antibiotics) (Verified Allergy, Unknown, 08/16/19) morphine (Verified Allergy, Unknown, 08/16/19) A-FIB/CHADSVASC A-FIB History Current/History of A-Fib/PAF?: No COLLINS LAM MD Aug 16, 2019 22:14
[2019-08-16] MEDS ORDERED: ACETAMINOPHEN TAB 650MG DOSE (2X325MG) PO PRN (22:15)
[2019-08-16 22:24] LABS: ALBUMIN 3.1 GM/DL (3.2-5.2); BILIRUBIN,TOTAL 0.4 MG/DL (0.2-1.0); CALCIUM LEVEL 9.6 MG/DL (8.8-10.2); CREATININE FOR GFR 1.92 MG/DL (0.55-1.30); GLOMERULAR FILTRATION RATE 26.4 (>32); MAGNESIUM LEVEL 2.3 MG/DL (1.8-2.4); POTASSIUM SERUM 4.3 MEQ/L (3.5-5.1); TOTAL PROTEIN 7.8 GM/DL (6.4-8.2)
[2019-08-16 23:00] VITALS: BP 128/65
[2019-08-16] MEDS ORDERED: INSULIN HUMAN REGULAR 100 UNITS in NS 99 ML IV SCH (23:00)
[2019-08-16] MEDS: KCL 10MEQ/100ML SWI (KRUN) 10 MEQ in IV 1 EA IV SCH (23:41)
[2019-08-17] VITALS (10 sets, daily range): BP systolic 116–157; BP diastolic 57–82
[2019-08-17] MEDS: KCL 10MEQ/100ML SWI (KRUN) 10 MEQ in IV 1 EA IV SCH ×2 (01:21→02:36)
[2019-08-17] MEDS ORDERED: KCL 10MEQ/100ML SWI (KRUN) 10 MEQ in IV 1 EA IV ONE (02:00)
[2019-08-17 02:36] LABS: ALBUMIN 2.7 GM/DL (3.2-5.2); BILIRUBIN,TOTAL 0.3 MG/DL (0.2-1.0); CALCIUM LEVEL 8.8 MG/DL (8.8-10.2); CREATININE FOR GFR 1.51 MG/DL (0.55-1.30); GLOMERULAR FILTRATION RATE 34.9 (>32); POTASSIUM SERUM 3.9 MEQ/L (3.5-5.1); TOTAL PROTEIN 6.9 GM/DL (6.4-8.2)
[2019-08-17] MEDS: INSULIN HUMAN REGULAR 100 UNITS in NS 99 ML IV SCH ×3 (02:36→16:39)
[2019-08-17] MEDS: INSULIN IV RATE CHANGE DOCUMENTATION ML/HR XX SCH ×4 (04:06→09:49)
[2019-08-17] MEDS: KCL 20MEQ IN 0.45NS 1000ML 1,000 ML IV SCH ×5 (05:28→14:00)
[2019-08-17] MEDS ORDERED: KCL 20MEQ IN 0.45NS 1000ML 1,000 ML IV SCH (05:48)
[2019-08-17 07:17] LABS: HEMATOCRIT 50.3 % (36.0-47.0); HEMOGLOBIN 15.5 g/dl (12.0-15.5); MEAN CORPUSCULAR HEMOGLOBIN 29.8 pg (27.0-33.0); MEAN CORPUSCULAR HGB CONC 30.8 g/dl (32.0-36.5); MEAN CORPUSCULAR VOLUME 96.5 fl (80.0-96.0); PLATELET COUNT, AUTOMATED 151 10^3/uL (150-450); RED BLOOD COUNT 5.21 10^6/uL (4.00-5.40); WHITE BLOOD COUNT 19.3 10^3/uL (4.0-10.0)
[2019-08-17 07:49] LABS: ALBUMIN 2.6 GM/DL (3.2-5.2); BILIRUBIN,TOTAL 0.3 MG/DL (0.2-1.0); CALCIUM LEVEL 8.7 MG/DL (8.8-10.2); CREATININE FOR GFR 1.31 MG/DL (0.55-1.30); GLOMERULAR FILTRATION RATE 41.1 (>32); MAGNESIUM LEVEL 2.2 MG/DL (1.8-2.4); POTASSIUM SERUM 4.3 MEQ/L (3.5-5.1); TOTAL PROTEIN 6.7 GM/DL (6.4-8.2)
[2019-08-17] MEDS ORDERED: HEPARIN SOD (PORCINE) 5000 UNITS/ML VIAL SC SCH (09:00)
[2019-08-17] MEDS ORDERED: ASPIRIN 81 MG ENTERIC TAB PO SCH (09:00)
[2019-08-17] MEDS ORDERED: METOPROLOL SUCC *XL* 25MG TAB (TopROL *XL*) PO SCH (09:00)
--- NOTE | 2019-08-17 11:02 | IPNPDOC ---
Text Note Date of Service The patient was seen on 08/17/19. NOTE SUBJECTIVE: Today is hospital day 2. Patient remains combative and poorly responsive to questions. Pt attempted to strike providers. According to nursing, who had a conversation with alf staff, this is her baseline status. Nursing also reports that pt did not want to swallow pills last night. Pt is expressing no further complaints at this time. OBJECTIVE: VITALS: Please see below. GENERAL: Pt appears stated age and is lying in bed in no acute distress. HEENT: Normocephalic, atraumatic. CARDIOVASCULAR: Regular rate and rhythm. No murmurs, rubs, or gallops. PULMONARY: Clear to auscultation b/l. No wheezes, rales, or rhonchi. ABDOMEN: Bowel sounds present in all 4 quadrants. Abdomen obese and soft with no organomegaly. EXTREMITIES: No peripheral edema. PSYCHIATRIC: Pt is agitated, combative, and uncooperative. Pt does not open her eyes to verbal stimuli and occasionally swings her arms at providers. Pt ignores questions and gives a few brief one-word answers. ASSESSMENT: Pt is a 83-year-old female with a significant past medical history of dementia, hyperlipidemia, and hypertension who presented from the [facility] complaining of fever and hyperglycemia and has been admitted for evaluation and treatment of a hyperosmolar hyperglycemic state. PLAN: 1. Hyperosmolar hyperglycemic state - Glucose is trending down (358 at 07:07). - s/p KCl 20meq in half normal saline IV at 250 mL/hour transitioned to D5/water for elevated chloride - S/p insulin drip. Plan to start insulin detemir 10 units subcutaneously qhs. - Continue to monitor by BMP q4h. - WBC trended up to 19 from 13 on admission. She was somewhat hemo-concentrated given her elevated Hgb on admission, likely 2/2 dehydration. Low suspicion of infection at this time. If it continues to increase (CBC at 1600 ordered), will start broad spectrum abx. Cultures negative thus far. - Lactic acid 3.5, will continue to trend 2. Hypernatremia - Corrected sodium peaked at 160 at 01:51 this morning and is 157 at 07:07. - Continue fluid management and BMPs mentioned above. - Will start D5W and will repeat BMP 3. Acute kidney injury - likely prerenal - BUN (44) and creatinine (1.31) have decreased overnight. - Continue to monitor for improvement. Leukocytosis - does not appear to be from an infectious etiology at this point, possibly 2/2 reactive etiology - ROS does not reveal any source of infection - Afebrile / hemodynamically stable - Elevated lactic acid - UA negative; Blood cultures pending - CXR negative - Will hold off on antibiotics at this poin t 4. Dementia - Pt is at baseline. Will continue to monitor for change. 5. Hypertension - Continue metoprolol. DVT prophylaxis: Subcutaneous heparin. DISPOSITION: Discharge pending clinical improvement. VS,Fishbone, I+O VS, Fishbone, I+O Laboratory Tests 08/16/19 19:17 08/16/19 21:11 08/17/19 01:51 Vital Signs Date Time Temp Pulse Resp B/P (MAP) Pulse Ox O2 Delivery O2 Flow Rate FiO2 08/16/19 22:30 98.7 109 22 159/65 (96) 93 08/16/19 18:27 Room Air I&O- Last 24 Hours up to 6 AM 08/17/19 06:00 Intake Total 2050 ml Balance 2050 ml GME ATTESTATION GME ATTESTATION My faculty preceptor for this patient encounter was physically present during the encounter and was fully available. All aspects of the patient interview, examination, medical decision making process, and medical care plan development were reviewed and approved by the faculty preceptor. The faculty preceptor is aware and concurs with the plan as stated in the body of this note and will attest to such by his/her cosignature. ATTENDING NOTE I, Deidra Wyman, have independently examined this patient and performed my own physical exam, as well as reviewed the documentation and edited where necessary. I have discussed in detail with the resident / student the findings and plan of treatment as documented by the resident / student and edited their note. I agree with their findings and treatment plan and have edited their documentation. I will continue to follow the patient during this hospital stay. LILIYAJAYDACONNOR S-III Aug 17, 2019 08:00 NEREIDA INIGUEZ MD Aug 17, 2019 13:58 DEIDRA WYMAN MD Aug 17, 2019 14:59
[2019-08-17 12:00] LABS: CALCIUM LEVEL 8.5 MG/DL (8.8-10.2); CREATININE FOR GFR 1.15 MG/DL (0.55-1.30); GLOMERULAR FILTRATION RATE 47.7 (>32); POTASSIUM SERUM 3.9 MEQ/L (3.5-5.1)
[2019-08-17] MEDS: D5W 1,000 ML IV SCH ×2 (13:06→23:12)
[2019-08-17] MEDS ORDERED: GLUCOSE 4 GM CHEW TABLET PO PRN (16:15)
[2019-08-17] MEDS ORDERED: GLUCAGON FOR INJ 1 MG VIAL (J1610) SC PRN (16:15)
[2019-08-17] MEDS ORDERED: DEXTROSE 50% 50 ML SYRINGE IV PRN (16:15)
[2019-08-17 16:44] LABS: BASO # 0.1 10^3/uL (0.0-0.2); BASO % 0.2 % (0.0-1.0); HEMATOCRIT 45.9 % (36.0-47.0); HEMOGLOBIN 14.1 g/dl (12.0-15.5); LYMPH # 2.9 10^3/uL (1.5-5.0); LYMPH % 14.2 % (24.0-44.0); MEAN CORPUSCULAR HEMOGLOBIN 30.1 pg (27.0-33.0); MEAN CORPUSCULAR HGB CONC 30.7 g/dl (32.0-36.5); MEAN CORPUSCULAR VOLUME 97.9 fl (80.0-96.0); MONO # 1.2 10^3/uL (0.0-0.8); MONO % 6.1 % (0.0-5.0); NEUTROPHILS # 15.9 10^3/uL (1.5-8.5); PLATELET COUNT, AUTOMATED 148 10^3/uL (150-450); RED BLOOD COUNT 4.69 10^6/uL (4.00-5.40); WHITE BLOOD COUNT 20.2 10^3/uL (4.0-10.0)
[2019-08-17 16:47] LABS: CALCIUM LEVEL 8.4 MG/DL (8.8-10.2); CREATININE FOR GFR 1.23 MG/DL (0.55-1.30); GLOMERULAR FILTRATION RATE 44.2 (>32); POTASSIUM SERUM 3.9 MEQ/L (3.5-5.1)
[2019-08-17] MEDS ORDERED: VANCOMYCIN HCL 1,000 MG, VIAL MATE ADAPTER 1 EACH in D5W 250 ML IV SCH (17:15)
[2019-08-17] MEDS: HumaLOG INSULIN (NovoLOG) PER UNIT SC SCH ×2 (17:30→21:00)
--- NOTE | 2019-08-17 17:55 | PHACANCOPD ---
PHARMACY VANCOMYCIN DOSING Pt Demographics Demographics Patient Age:83 , Weight:87.900 , Gender: female Adjusted Body Weight Date: 08/17/19, Adjusted Body Weight: Kg Events Past 24 Hours Events Past 24 Hours: NO: Dialysis, Diuretic Therapy, Change in CrCl, Fever, Elevation in WBC, Pending Diagnostics, Pending Procedures, Other Vancomycin Vancomycin indication: EMPIRIC COVERAGE-UNKNOWN ORGANISM Vancomycin Target Ranges: 15-20 mcg/ml Vancomycin Load Y/N: Yes Load Dose Date Time Vancomycin Load Dose: 1750MG ( DOSES BY 2 HOURS DUE TO RENAL FUNCTION AND AGE) Date: 08/17/19 Time: 1800 AND 1999 Vancomycin Dose Date: 08/17/19. Current Vancomycin Dose: [1250MG Q24H @1999] Intermittent Dosing?: No Labs Labs Vital Signs Label Value Date Time Patient Temperature 98.6 degrees F 08/17/19 1200 Item Value Date Time White Blood Count 20.2 10^3/uL H 08/17/19 1607 Creatinine 1.23 MG/DL 08/17/19 1607 Glomerular Filtration Rate 44.2 08/17/19 1607 Micro Microbiology 08/17/19 Respiratory Virus Panel (PCR) (LUISANA) - Final, Complete 08/16/19 Urine Culture, Received Pending 08/16/19 Blood Culture, Received Pending Creatinine Clearance Date:08/17/19. Creatinine Clearance: [35.9]. Assessment and Plan Maintaining Current Dose?: Yes Reason for dose change: No Dose Change Pharmacist Note Pharmacist Note Date: 08/17/19. Pharmacist note: This is the first time we are following this patient at our facility on Vancomycin therapy. Currently Vanco is on with Meropenem for broad spectrum coverage until cultures come back. WBC remain elevated and patient was febrile upon admission but is currently back to normal without intervention. Respiratory PCR was negative, no MRSA PCR was done at this time. The patient's SCr= 1.23 and CrCl= 35.9. This lead to a loading dose of 1750mg to be given, with the 750mg dose and the 1G dose being by 2 hours given the patients age and renal function. A maintenance dose of 1250mg Q24H is scheduled to start on 08/18/19 @ 1999. We will CTM and dose adjust as needed. ANA HUNG, PHARMACY Aug 17, 2019 17:55
[2019-08-17] MEDS ORDERED: VANCOMYCIN HCL 750 MG, VIAL MATE ADAPTER 1 EACH in D5W 250 ML IV ONE (18:00)
[2019-08-17] MEDS ORDERED: HEPARIN SOD (PORCINE) 5000 UNITS/ML VIAL IV PRN (19:45)
--- NOTE | 2019-08-17 19:48 | IPNPDOC ---
Text Note Date of Service The patient was seen on 08/17/19. NOTE TIME OF SERVICE 820PM Per d/w the nursing staff the patient was found to be in a fib on Telemetry around 719PM Currently the patient is alert and appears comfortable. #New Onset Afib ? Unable to find notes about hx of a fib or old Echo Based on her age, gender hx of DM and hx of CAD/CABG her CHADSVASC score is at least 5 She is DNR w trail of intubation. Plan: f/u stat EKG, TSH, Trop, start Heparin drip for AC pending obtaining record of old Echo to r/o valvular a fib (nursing staff will call her NH to see if we can get an old record, if we can't find one the day time team can consider contacting her PCP for records or ordering an Echo) / switch from Metoprolol Succinate 25mg daily to Metoprolol Tartrate 25mg BID for rate control / stop ASA and DVT Px dose of Heparin VS,Fishbone, I+O VS, Fishbone, I+O Laboratory Tests 08/16/19 21:11 08/17/19 01:51 08/17/19 07:07 08/17/19 11:23 08/17/19 16:07 Vital Signs Date Time Temp Pulse Resp B/P (MAP) Pulse Ox O2 Delivery O2 Flow Rate FiO2 08/17/19 18:00 91 20 128/82 (97) 96 Room Air 08/17/19 16:00 98.4 I&O- Last 24 Hours up to 6 AM 08/17/19 06:00 Intake Total 2050 ml Balance 2050 ml SUMIT DURHAM MD Aug 17, 2019 19:48
[2019-08-17] MEDS ORDERED: VANCOMYCIN HCL 1,000 MG, VIAL MATE ADAPTER 1 EACH in D5W 250 ML IV ONE (20:00)
[2019-08-17] MEDS ORDERED: LEVEMIR (INSULIN DETEMIR) 1 UNITS/0.01ML SC SCH (21:00)
[2019-08-17 21:13] LABS: THYROID STIMULATING HORMONE 0.816 uIU/ML (0.358-3.740); TROPONIN I 0.16 NG/ML (< 0.10)
[2019-08-17] MEDS: MEROPENEM INJ 1 GM in IV 1 EA IV SCH (21:47)
[2019-08-17] MEDS: LEVEMIR (INSULIN DETEMIR) 1 UNITS/0.01ML SC SCH (21:48)
[2019-08-17] MEDS: METOPROLOL TART 25 MG TABLET PO SCH (22:04)
[2019-08-17] MEDS: HEPARIN DRIP 25,000 UNITS in IV 1 EA IV SCH (23:09)
[2019-08-18] VITALS (9 sets, daily range): BP systolic 100–137; BP diastolic 47–91
[2019-08-18 05:33] LABS: BASO % 0.2 % (0.0-1.0); EOS % 0.2 % (0.0-3.0); HEMATOCRIT 42.7 % (36.0-47.0); LYMPH # 3.4 10^3/uL (1.5-5.0); LYMPH % 19.3 % (24.0-44.0); MEAN CORPUSCULAR HEMOGLOBIN 29.7 pg (27.0-33.0); MEAN CORPUSCULAR HGB CONC 30.4 g/dl (32.0-36.5); MEAN CORPUSCULAR VOLUME 97.5 fl (80.0-96.0); MONO # 1.1 10^3/uL (0.0-0.8); NEUTROPHILS % 73.6 % (36.0-66.0); PLATELET COUNT, AUTOMATED 115 10^3/uL (150-450); RED BLOOD COUNT 4.38 10^6/uL (4.00-5.40); WHITE BLOOD COUNT 17.6 10^3/uL (4.0-10.0)
[2019-08-18 06:03] LABS: CREATININE FOR GFR 1.05 MG/DL (0.55-1.30); MAGNESIUM LEVEL 1.9 MG/DL (1.8-2.4); POTASSIUM SERUM 3.7 MEQ/L (3.5-5.1)
[2019-08-18] MEDS: HEPARIN DRIP 25,000 UNITS in IV 1 EA IV SCH (07:26)
[2019-08-18] MEDS: MEROPENEM INJ 1 GM in IV 1 EA IV SCH ×2 (09:18→20:41)
[2019-08-18] MEDS: METOPROLOL TART 25 MG TABLET PO SCH ×2 (09:18→20:42)
[2019-08-18] MEDS: HumaLOG INSULIN (NovoLOG) PER UNIT SC SCH ×4 (09:19→20:32)
--- NOTE | 2019-08-18 10:21 | IPNPDOC ---
Text Note Date of Service The patient was seen on 08/18/19. NOTE SUBJECTIVE: Today is hospital day 3. Pt remains combative and poorly responsive to questions. Patient developed atrial fibrillation on telemetry last night. Caro Sanches MD was contacted, and she started pt on IV heparin and changed her metoprolol prescription (see below). Pt's family was contacted and stated that she has a history of atrial fibrillation. Patient has no further complaints at this time. OBJECTIVE: VITALS: Please see below. GENERAL: Pt appears stated age and is lying in bed with her eyes closed in no acute distress. HEENT: Normocephalic, atraumatic. CARDIOVASCULAR: Regular rate and rhythm. No murmurs, rubs, or gallops. PULMONARY: Clear to auscultation b/l. No wheezes, rales, or rhonchi. ABDOMEN: Bowel sounds present in all 4 quadrants. Abdomen obese and soft with no organomegaly. EXTREMITIES: No peripheral edema. PSYCHIATRIC: Pt is calm but uncooperative. Pt does not open her eyes to verbal stimuli. Pt ignores questions and gives a few brief one-word answers. ASSESSMENT: Pt is a 83-year-old female with a significant past medical history of dementia, hyperlipidemia, and hypertension who presented from the [facility] complaining of fever and hyperglycemia and has been admitted for evaluation and treatment of a hyperosmolar hyperglycemic state. PLAN: 1. Hyperosmolar hyperglycemic state - Glucose is being controlled appropriately by current insulin regimen. - Chloride still elevated at 117, but trending down since labs yesterday of 125 --121. - Discontinue D5W. At this time, no IV fluids are being given (see hypernatremia below) - Continue to monitor by BMP q4h. 2. Hypernatremia - Sodium continues to trend down with lab his morning of 147 at 04:52. - IV fluids discontinued to prevent inappropriately rapid hypernatremia correction. Continue BMPs mentioned above. - Will repeat BMP and resume IV fluids as needed 3. Atrial fibrillation - Concerning for infection with workup in progress. WBC had a peak of 20.2 at 16:07 and is now trending down at 17.6 at 04:52 today. - ROS revealed no source of infection. Pt is afebrile and hemodynamically stable. Chest x-ray was negative. - Blood culture showed no growth after 24 hours. Respiratory virus panel negative. Urine culture pending. - Empiric sepsis coverage with vancomycin and meropenem initiated yesterday. - Lactic acid was high at admission and is now trending down with a lab yesterday of 2.4 at 16:07. - Discontinue IV heparin drip and resume subcutaneous regimen. Patient does have history of atrial fibrillation and has been off AC while in residential. This is paroxysmal as she has not been in AF throughout the day today. If she happens to go back into AF overnight no heparin drip is needed and AC can be deferred at this time. - Ordered a CT chest, abdomen, and pelvis negative for infection - Ordered an echocardiogram to further characterize atrial fibrillation. 4. Acute kidney injury - likely prerenal - BUN (36) and creatinine (1.05 - within normal limits) have decreased. - Continue to monitor for improvement. 4. Dementia - Pt is at baseline. Will continue to monitor for change. 5. Hypertension - Metoprolol succinate was changed to metoprolol tartrate (see above). DVT prophylaxis: Subcutaneous heparin. DISPOSITION: Discharge pending clinical improvement and suspected infection workup. VS,Fishbone, I+O VS, Fishbone, I+O Laboratory Tests 08/17/19 11:23 08/17/19 16:07 08/18/19 04:52 Vital Signs Date Time Temp Pulse Resp B/P (MAP) Pulse Ox O2 Delivery O2 Flow Rate FiO2 08/18/19 09:18 70 110/62 08/18/19 08:00 97.8 20 92 Room Air I&O- Last 24 Hours up to 6 AM 08/18/19 05:59 Intake Total 4165 ml Output Total 150 ml Balance 4015 ml GME ATTESTATION GME ATTESTATION My faculty preceptor for this patient encounter was physically present during the encounter and was fully available. All aspects of the patient interview, examination, medical decision making process, and medical care plan development were reviewed and approved by the faculty preceptor. The faculty preceptor is aware and concurs with the plan as stated in the body of this note and will attest to such by his/her cosignature. ATTENDING NOTE I, Deidra Shi, have independently examined this patient and performed my own physical exam, as well as reviewed the documentation and edited where necessary. I have discussed in detail with the resident / student the findings and plan of treatment as documented by the resident / student and edited their note. I agree with their findings and treatment plan and have edited their documentation. I will continue to follow the patient during this hospital stay. CONNOR LOVELL OMS-III Aug 18, 2019 10:21 NEREIDA INIGUEZ MD Aug 18, 2019 13:39 DEIDRA SHI MD Aug 18, 2019 14:06
--- NOTE | 2019-08-18 10:41 | REPVR ---
PROCEDURE INFORMATION: Exam: CT Abdomen And Pelvis Without Contrast Exam date and time: 08/18/2019 8:22 AM Age: 83 years old Clinical indication: Abnormal findings; Abnormal lab test; Elevated wbc; Additional info: Leukocytosis and af TECHNIQUE: Imaging protocol: Computed tomography of the abdomen and pelvis without contrast. Radiation optimization: All CT scans at this facility use at least one of these dose optimization techniques: automated exposure control; mA and/or kV adjustment per patient size (includes targeted exams where dose is matched to clinical indication); or iterative reconstruction. COMPARISON: CT ABD PELVIS W/O CONTRAST 01/05/2013 4:44 AM FINDINGS: Liver: The liver is normal. Gallbladder and bile ducts: Status post cholecystectomy. The common bile duct is mildly dilated, with no evidence of obstructive calculus or lesion and no change from prior scan. This is not unusual following cholecystectomy. Pancreas: There is pancreatic atrophy. No focal lesion. Spleen: The spleen is normal. Adrenals: The adrenal glands are normal. Kidneys and ureters: There is a 2.6 cm right renal cyst. At the lower pole of the left kidney there is a 13 mm exophytic lesion. Density measurements are indeterminate. Size is unchanged from the prior scan. No hydronephrosis. Stomach and bowel: There is fecal stasis in the rectum which is distended to 7 cm. There is moderate fecal stasis through the remainder of colon. No evidence of bowel obstruction. No wall thickening. Appendix: No evidence of appendicitis. Intraperitoneal space: There is no free fluid or fluid collection. There is no free air. Vasculature: Unremarkable. No abdominal aortic aneurysm. Lymph nodes: Unremarkable. No enlarged lymph nodes. Bladder: The bladder is normal with no evidence of calculi. Reproductive: Unremarkable as visualized. Bones/joints: There is a left hip prosthesis. This results in minimal artifact partially obscuring adjacent structures. No acute fracture. There are degenerative changes of the spine. Soft tissues: Unremarkable. IMPRESSION: 1. No acute inflammatory findings in the abdomen or pelvis. 2. Fecal stasis distends the rectum. 3. 2.6 cm right renal cyst. 13 mm indeterminate lesion at the lower pole of the left kidney could represent a hemorrhagic cyst. Neoplasm cannot be excluded on this noncontrast scan. Pre-and post contrast CT or MRI could be performed to exclude neoplasm. The size is stable compared with prior scan. Electronically signed by: Garret Gonsalves On 08/18/2019 10:41:40 AM
--- NOTE | 2019-08-18 10:44 | REPVR ---
PROCEDURE INFORMATION: Exam: CT Chest Without Contrast Exam date and time: 08/18/2019 8:22 AM Age: 83 years old Clinical indication: Abnormal findings; Abnormal diagnostic tests; Abnormal ekg; Additional info: Leukocytosis and af TECHNIQUE: Imaging protocol: Computed tomography of the chest without contrast. Radiation optimization: All CT scans at this facility use at least one of these dose optimization techniques: automated exposure control; mA and/or kV adjustment per patient size (includes targeted exams where dose is matched to clinical indication); or iterative reconstruction. COMPARISON: CR Chest, 1 view 08/16/2019 7:20 PM FINDINGS: Lungs: There is minor atelectasis posteriorly. No focal consolidation. Pleural space: There are small bilateral pleural effusions. Heart: There are extensive coronary artery calcifications. Aorta: Unremarkable. No aortic aneurysm. Lymph nodes: Unremarkable. No enlarged lymph nodes. Bones/joints: There are degenerative changes of the thoracic spine with multilevel bridging osteophytes. No acute fracture. Soft tissues: Unremarkable. IMPRESSION: 1. Small bilateral pleural effusions with adjacent atelectasis. 2. No lung consolidation. Electronically signed by: Garret Gonsalves On 08/18/2019 10:44:40 AM
[2019-08-18] MEDS: HEPARIN SOD (PORCINE) 5000 UNITS/ML VIAL SQ SCH ×2 (12:38→20:40)
[2019-08-18 13:10] LABS: BLOOD UREA NITROGEN 34 MG/DL (7-18); CARBON DIOXIDE LEVEL 25 MEQ/L (21-32); CHLORIDE LEVEL 118 MEQ/L (98-107); CREATININE FOR GFR 0.91 MG/DL (0.55-1.30); GLOMERULAR FILTRATION RATE > 60.0 (>32); GLUCOSE, FASTING 111 MG/DL (70-100); POTASSIUM SERUM 3.9 MEQ/L (3.5-5.1); SODIUM LEVEL 149 MEQ/L (136-145)
[2019-08-18] MEDS: D5W 1,000 ML IV SCH (14:26)
[2019-08-18 18:30] LABS: BLOOD UREA NITROGEN 31 MG/DL (7-18); CARBON DIOXIDE LEVEL 22 MEQ/L (21-32); CHLORIDE LEVEL 118 MEQ/L (98-107); CREATININE FOR GFR 0.88 MG/DL (0.55-1.30); GLOMERULAR FILTRATION RATE > 60.0 (>32); GLUCOSE, FASTING 178 MG/DL (70-100); POTASSIUM SERUM 3.9 MEQ/L (3.5-5.1); SODIUM LEVEL 148 MEQ/L (136-145)
[2019-08-18] MEDS ORDERED: VANCOMYCIN HCL 750 MG, VIAL MATE ADAPTER 1 EACH in D5W 250 ML IV SCH (20:00)
[2019-08-18] MEDS: LEVEMIR (INSULIN DETEMIR) 1 UNITS/0.01ML SC SCH (20:40)
[2019-08-18] MEDS ORDERED: VANCOMYCIN HCL 500 MG in D5W MINI-BAG PLUS 100 ML IV SCH (21:00)
[2019-08-19 04:00] VITALS: BP 134/65
[2019-08-19 05:48] LABS: BASO % 0.2 % (0.0-1.0); EOS # 0.1 10^3/uL (0.0-0.5); EOS % 1.7 % (0.0-3.0); HEMATOCRIT 39.5 % (36.0-47.0); HEMOGLOBIN 12.4 g/dl (12.0-15.5); LYMPH # 3.5 10^3/uL (1.5-5.0); LYMPH % 41.4 % (24.0-44.0); MEAN CORPUSCULAR HEMOGLOBIN 30.2 pg (27.0-33.0); MEAN CORPUSCULAR HGB CONC 31.4 g/dl (32.0-36.5); MEAN CORPUSCULAR VOLUME 96.1 fl (80.0-96.0); MONO # 0.7 10^3/uL (0.0-0.8); MONO % 7.7 % (0.0-5.0); NEUTROPHILS # 4.1 10^3/uL (1.5-8.5); NEUTROPHILS % 48.4 % (36.0-66.0); RED BLOOD COUNT 4.11 10^6/uL (4.00-5.40); WHITE BLOOD COUNT 8.4 10^3/uL (4.0-10.0)
[2019-08-19 06:01] LABS: PLATELET COUNT, AUTOMATED 97 10^3/uL (150-450)
[2019-08-19 06:09] LABS: BLOOD UREA NITROGEN 28 MG/DL (7-18); CALCIUM LEVEL 7.6 MG/DL (8.8-10.2); CARBON DIOXIDE LEVEL 26 MEQ/L (21-32); CHLORIDE LEVEL 116 MEQ/L (98-107); CREATININE FOR GFR 0.85 MG/DL (0.55-1.30); GLOMERULAR FILTRATION RATE > 60.0 (>32); GLUCOSE, FASTING 203 MG/DL (70-100); MAGNESIUM LEVEL 1.8 MG/DL (1.8-2.4); POTASSIUM SERUM 3.8 MEQ/L (3.5-5.1); SODIUM LEVEL 147 MEQ/L (136-145)
--- NOTE | 2019-08-19 07:14 | ECHO ---
DATE OF STUDY: 08/18/2019 DATE OF : 1935 AGE: 83 REFERRING PHYSICIAN: Dr. Deidra Shi INDICATION: Abnormal ECG. HEIGHT: 63 inches. WEIGHT: 193 pounds 2-D MEASUREMENTS: Aortic root: 3.7 cm Left atrium: 3.0 cm Proximal ascending aorta: 3.4 cm Ventricular septum: 1.47 cm Posterior wall: 1.17 cm Left ventricle diastole: 4.3 cm Aortic root: 2.2 cm Inferior vena cava: 1.2 cm DOPPLER MEASUREMENTS: Aortic valve velocity: 161 cm/sec LVOT velocity: 83.6 cm/sec LVOT VTI: 15.1 cm Very mild mitral regurgitation Mitral E velocity: 60.6 cm/sec Mitral A velocity: 124 cm/sec Trace tricuspid regurgitation No pulmonic regurgitation DESCRIPTION: The rhythm was sinus. This was a moderately technically difficult echocardiogram. No suprasternal views were possible (technically difficult). CONCLUSIONS: 1. Normal left ventricle internal dimensions. Mild focal hypertrophy of the basal anterior ventricular septum. Normal region al LV wall motion and wall thickening. Normal LV systolic function. LVEF 70% by visual estimate. Grade 1 LV diastolic dysfunction. 2. Moderate aortic valve sclerosis of a 3-cuspid aortic valve. No aortic stenosis or regurgitation. 3. Moderate mitral annular calcification. Very mild mitral regurgitation. No mitral stenosis. 4. Normal left atrial size. 5. Otherwise unremarkable appearing echocardiogram Doppler findings.
--- NOTE | 2019-08-19 07:50 | ECGEPIP ---
[facility] Test Date: 2019-08-17 Pat Name: ROSALIND FERNÁNDEZ Department: Room: [place] [address] Gender: Female [employer] Reviewer: GABRIELE : 1935 Requested By: SUMIT DURHAM Order Number: [id number] Reading MD: Bennie Paul Measurements Intervals [place] Rate: 125 P: CO: 0 QRS: -36 QRSD: 108 T: 155 QT: 286 QTc: 413 Interpretive Statements Atrial fibrillation with rapid ventricular response One PVC vs. Olu beat Left axis deviation Low QRS complex voltage in the limb leads Delayed anterior R wave progression Nonspecific ST-T wave abnormalities Comparison tracing not on file Electronically Signed on 08-19-2019 7:49:40 EST by Bennie Paul
[2019-08-19 08:00] VITALS: BP 138/88
[2019-08-19 08:17] VITALS: BP 138/64
[2019-08-19] MEDS: METOPROLOL TART 25 MG TABLET PO SCH (08:17)
[2019-08-19] MEDS: HumaLOG INSULIN (NovoLOG) PER UNIT SC SCH ×4 (08:18→20:27)
[2019-08-19] MEDS: HEPARIN SOD (PORCINE) 5000 UNITS/ML VIAL SQ SCH ×2 (08:18→21:01)
[2019-08-19] MEDS: MEROPENEM INJ 1 GM in IV 1 EA IV SCH (08:18)
[2019-08-19] MEDS: D5W 1,000 ML IV SCH ×2 (08:19→21:00)
--- NOTE | 2019-08-19 09:59 | IPNPDOC ---
Text Note Date of Service The patient was seen on 08/19/19. NOTE SUBJECTIVE: Pt remains combative and poorly responsive to questions. No events/issues overnight. Nursing reports she is intermittently refusing oral food/meds. OBJECTIVE: VITALS: Please see below. GENERAL: Pt appears stated age and is lying in bed with her eyes closed in no acute distress. HEENT: Normocephalic, atraumatic. CARDIOVASCULAR: Regular rate and rhythm. No murmurs, rubs, or gallops. PULMONARY: Clear to auscultation b/l. No wheezes, rales, or rhonchi. ABDOMEN: Abdomen obese and soft with no organomegaly. EXTREMITIES: No peripheral edema. PSYCHIATRIC: Pt is calm but uncooperative. Pt does not open her eyes to verbal stimuli. Pt ignores questions and gives a few brief one-word answers. IMAGIN. CT chest without contrast, from report: "Small bilateral pleural effusions with adjacent atelectasis. No lung consolidation." 2. CT abdomen and pelvis without contrast, from report: "No acute inflammatory findings in the abdomen or pelvis. Fecal stasis distends the rectum. 2.6 cm right renal cyst. 13 mm indeterminate lesion at the lower pole of the left kidn ey could represent a hemorrhagic cyst. Neoplasm cannot be excluded on this noncontrast scan. Pre- and post-contrast CT or MRI could be performed to exclude neoplasm. The size is stable compared with prior scan." 3. Echocardiogram, from report: "Normal left ventricle internal dimensions. Mild focal hypertrophy of the basal anterior ventricular septum. Normal region al LV wall motion and wall thickening. Normal LV systolic function. LVEF 70% by visual estimate. Grade 1 LV diastolic dysfunction. Moderate aortic valve sclerosis of a 3-cuspid aortic valve. No aortic stenosis or regurgitation. Moderate mitral annular calcification. Very mild mitral regurgitation. No mitral stenosis. Normal left atrial size. Otherwise unremarkable appearing echocardiogram Doppler findings." ASSESSMENT: Pt is a 83-year-old female with a significant past medical history of dementia, hyperlipidemia, and hypertension who presented from the [facility] complaining of fever and hyperglycemia and has been admitted for evaluation and treatment of a hyperosmolar hyperglycemic state. PLAN: 1. s/p Hyperosmolar hyperglycemic state - Continue Levemir 10U QHS, SSI and hypoglycemic protocol for glucose control - Continue to monitor closely by BMP. Next will be drawn at noon today. 2. Hypernatremia - Sodium still elevated at 147 this morning, but stable overnight. - Restarted D5W 1L at 60 mL/hr yesterday afternoon. Given stable high chloride and sodium, this will be increased to 80 mL/hr. 3. Atrial fibrillation - Concerning for infection with workup in progress. WBC now within normal limits at 8.4. - Pt is afebrile and hemodynamically stable. Chest x-ray, CT chest, and CT abdomen/pelvis were negative. - Lactic acid trended down to 2.4 - Resumed SQH yesterday. Patient does have history of atrial fibrillation and has been off anticoagulation while in custodial. - This is paroxysmal as she has not been in atrial fibrillation throughout the day yesterday. - Echocardiogram was not concerning for valvular atrial fibrillation. Leukocytosis - possibly 2/2 infection, etiology unclear - ROS is can not be obtained as patient cannot answer questions appropriately - Significant leukocytosis has resolved after starting broad spectrum antibiotics - Lactic acid resolved - UA negative - CXR negative / Imaging negative - Urine culture was negative. S/p Vancomycin/Meropenem x 3 day, replaced with oral moxifloxacin for 5 days beginning today. 4. Acute kidney injury - likely prerenal, resolving - BUN (28) continues to trend down and creatinine remains within normal limits. - Continue to monitor for improvement. 4. Dementia - Pt is at baseline, per family. She does refuse oral intake at baseline. Will continue to monitor for change. 5. Hypertension - metoprolol tartrate switched to Succinate 25mg daily (home dose) DVT prophylaxis: Subcutaneous heparin. DISPOSITION: Discharge back to the custodial likely tomorrow afternoon if stable and tolerating moxifloxacin. VS,Fishbone, I+O VS, Fishbone, I+O Laboratory Tests 08/18/19 12:00 08/18/19 17:57 08/19/19 05:36 Vital Signs Date Time Temp Pulse Resp B/P (MAP) Pulse Ox O2 Delivery O2 Flow Rate FiO2 08/19/19 04:00 97.7 65 18 134/65 (88) 97 Room Air I&O- Last 24 Hours up to 6 AM 08/19/19 06:00 Intake Total 1127 ml Balance 1127 ml GME ATTESTATION GME ATTESTATION My faculty preceptor for this patient encounter was physically present during the encounter and was fully available. All aspects of the patient interview, examination, medical decision making process, and medical care plan development were reviewed and approved by the faculty preceptor. The faculty preceptor is aware and concurs with the plan as stated in the body of this note and will attest to such by his/her cosignature. ATTENDING NOTE I, Deidra Wyman, have independently examined this patient and performed my own physical exam, as well as reviewed the documentation and edited where necessary. I have discussed in detail with the resident / student the findings and plan of treatment as documented by the resident / student and edited their note. I agree with their findings and treatment plan and have edited their documentation. I will continue to follow the patient during this hospital stay. CONNOR LOVELL OMS-III Aug 19, 2019 07:43 NEREIDA INIGUEZ MD Aug 19, 2019 11:31 DEIDRA WYMAN MD Aug 19, 2019 15:40
[2019-08-19 12:00] VITALS: BP 135/70
[2019-08-19 12:53] LABS: BLOOD UREA NITROGEN 26 MG/DL (7-18); CALCIUM LEVEL 8.1 MG/DL (8.8-10.2); CARBON DIOXIDE LEVEL 26 MEQ/L (21-32); CHLORIDE LEVEL 116 MEQ/L (98-107); CREATININE FOR GFR 0.78 MG/DL (0.55-1.30); GLOMERULAR FILTRATION RATE > 60.0 (>32); GLUCOSE, FASTING 174 MG/DL (70-100); POTASSIUM SERUM 3.9 MEQ/L (3.5-5.1); SODIUM LEVEL 145 MEQ/L (136-145)
[2019-08-19] MEDS: MOXIFLOXACIN 400 MG TAB PO SCH (13:20)
[2019-08-19 16:00] VITALS: BP 134/66
[2019-08-19 20:00] VITALS: BP 133/77
[2019-08-19] MEDS: LEVEMIR (INSULIN DETEMIR) 1 UNITS/0.01ML SC SCH (20:57)
[2019-08-19] MEDS ORDERED: LEVEMIR (INSULIN DETEMIR) 1 UNITS/0.01ML SC ONE (21:00)
[2019-08-20] MEDS: D5W 1,000 ML IV SCH (03:44)
[2019-08-20 04:00] VITALS: BP 165/70
[2019-08-20 05:45] VITALS: BP 156/68
[2019-08-20] MEDS: MOXIFLOXACIN 400 MG TAB PO SCH (05:47)
[2019-08-20 05:59] LABS: BASO % 0.2 % (0.0-1.0); EOS # 0.4 10^3/uL (0.0-0.5); HEMATOCRIT 41.3 % (36.0-47.0); HEMOGLOBIN 13.2 g/dl (12.0-15.5); LYMPH # 2.3 10^3/uL (1.5-5.0); LYMPH % 23.7 % (24.0-44.0); MEAN CORPUSCULAR HEMOGLOBIN 30.3 pg (27.0-33.0); MEAN CORPUSCULAR VOLUME 94.9 fl (80.0-96.0); MONO # 0.7 10^3/uL (0.0-0.8); MONO % 7.1 % (0.0-5.0); NEUTROPHILS # 6.2 10^3/uL (1.5-8.5); NEUTROPHILS % 64.5 % (36.0-66.0); RED BLOOD COUNT 4.35 10^6/uL (4.00-5.40); WHITE BLOOD COUNT 9.6 10^3/uL (4.0-10.0)
[2019-08-20 06:13] LABS: PLATELET COUNT, AUTOMATED 94 10^3/uL (150-450)
[2019-08-20 06:17] LABS: BLOOD UREA NITROGEN 20 MG/DL (7-18); CALCIUM LEVEL 7.8 MG/DL (8.8-10.2); CARBON DIOXIDE LEVEL 24 MEQ/L (21-32); CHLORIDE LEVEL 112 MEQ/L (98-107); CREATININE FOR GFR 0.75 MG/DL (0.55-1.30); GLOMERULAR FILTRATION RATE > 60.0 (>32); GLUCOSE, FASTING 198 MG/DL (70-100); POTASSIUM SERUM 3.5 MEQ/L (3.5-5.1); SODIUM LEVEL 143 MEQ/L (136-145)
[2019-08-20] MEDS: HumaLOG INSULIN (NovoLOG) PER UNIT SC SCH ×2 (08:02→12:00)
[2019-08-20] MEDS: METOPROLOL SUCC *XL* 25MG TAB (TopROL *XL*) PO SCH ×2 (08:03→08:27)
[2019-08-20] MEDS: HEPARIN SOD (PORCINE) 5000 UNITS/ML VIAL SQ SCH (08:05)
[2019-08-20] MEDS ORDERED: INSULADS INJ (09:41)
[2019-08-20] MEDS ORDERED: MOXI400T11 PO (09:41)
[2019-08-20] MEDS ORDERED: FLEET ENEMA PR PRN (10:30)
--- NOTE | 2019-08-20 11:46 | DS.PDOC ---
Discharge Summary General Date of Admission Aug 16, 2019 at 21:46 Date of Discharge Aug 20, 2019 Attending Physician: DEIDRA WYMAN MD Discharge Summary PROCEDURES PERFORMED DURING STAY: None. ADMITTING DIAGNOSES: 1. Hyperglycemic hyperosmolar state. 2. Hypernatremia. 3. Acute kidney injury. 4. Dementia. 5. Hypertension. 6. Diabetes mellitus type II. DISCHARGE DIAGNOSES: 1. Hyperglycemic hyperosmolar state - resolved. 2. Hypernatremia - resolved. 3. Chronic atrial fibrillation. 4. Acute kidney injury - resolving. 5. Dementia - at baseline. 6. Hypertension. 7. Diabetes mellitus type II. COMPLICATIONS/CHIEF COMPLAINT: Dementia. HISTORY OF PRESENT ILLNESS: Patient is an 83-year-old female with a past medical history dementia, hypertension, hyperlipidemia and diabetes mellitus who presented to the [facility] emergency department from [facility] for fever and hyperglycemia. Pt history and examination were limited due to profound dementia; she would not answer questions or follow commands. Information was obtained from ED staff and electronic medical record. Pt had a blood glucose of 882 in the ED with other labs consistent with dehydration, hypernatremia and acute kidney injury. HOSPITAL COURSE: Pt was admitted to the progressive care unit and started on fluid resuscitation with half normal saline with potassium chloride. She was later transitioned to D5 water in response hypernatremia and hyperchloremia. She was placed on insulin to correct hyperglycemia. Her electrolyte and glucose levels and her kidney function were monitored closely throughout her admission. She was shown to have leukocytosis, but infection workup was negative. She was placed on empiric antibiotics and her leukocytosis resolved. She is being discharged with oral moxifloxacin to complete her course. Pt was observed to have bouts of paroxysmal atrial fibrillation and was switched to IV heparin for a short time before resuming DVT prophylaxis by subcutaneous heparin. Pt's dementia remained consistent throughout her admission. On the day of admission, her condition was deemed stable and appropriate for discharge back to the [facility]. DISCHARGE MEDICATIONS: Please see below. ALLERGIES: Please see below. PHYSICAL EXAMINATION ON DISCHARGE: VITAL SIGNS: Please see below. GENERAL: Pt appears stated age and is lying in her hospital in no apparent distress. Exam limited due to fluctuating combativeness. HEENT: Normocephalic, atraumatic. CARDIOVASCULAR EXAMINATION: Regular rate and rhythm. RESPIRATORY EXAMINATION: Left lung clear to auscultation with no wheezes, rales, or rhonchi. Unable to auscultate right lung due to combativeness. ABDOMINAL EXAMINATION: Unable to examine due to combativeness. PSYCHIATRIC EXAMINATION: Pt appears calm but will intermittently attempt to strike providers. Pt does not answer questions. Pt opens her eyes, but not in response to provider questions. LABORATORY DATA: Please see below. IMAGIN. Chest x-ray, from report: "Chronic stable changes. No obvious focal consolidation." 2. Chest CT, from report: "Small bilateral pleural effusions with adjacent atelectasis. No lung consolidation." 3. Abdomen/pelvis CT, from report: "No acute inflammatory findings in the abdomen or pelvis. Fecal stasis distends the rectum. 2.6 cm right renal cyst. 13 mm indeterminate lesion at the lower pole of the left kidney could represent a hemorrhagic cyst. Neoplasm cannot be excluded on this noncontrast scan. Pre-and post contrast CT or MRI could be performed to exclude neoplasm. The size is stable compared with prior scan." PROGNOSIS: Fair. ACTIVITY: As tolerated. DIET: As tolerated. DISCHARGE PLAN: Discharge back to [facility]. DISPOSITION: Discharge back to [facility]. DISCHARGE INSTRUCTIONS: 1. Follow up with primary care provider as needed. 2. Return to the ER if you experience any problems ITEMS TO FOLLOWUP ON ON OUTPATIENT: 1. Chronic conditions as needed. DISCHARGE CONDITION: Stable. TIME SPENT ON DISCHARGE: Greater than 30 minutes. Vital Signs/I&Os Vital Signs Date Time Temp Pulse Resp B/P (MAP) Pulse Ox O2 Delivery O2 Flow Rate FiO2 08/20/19 05:45 97.5 77 20 156/68 (97) 97 Room Air I&O- Last 24 Hours up to 6 AM 08/20/19 06:00 Intake Total 1760 ml Balance 1760 ml Laboratory Data Labs 24H Laboratory Tests 2 08/19/19 12:05: Anion Gap 3L, Glomerular Filtration Rate > 60.0, Calcium Level 8.1L 08/19/19 12:59: Bedside Glucose (Misc Panel) 155H 08/19/19 18:19: Bedside Glucose (Misc Panel) 171H 08/19/19 20:24: Bedside Glucose (Misc Panel) 139H 08/20/19 05:30: Immature Granulocyte % (Auto) 0.5, Neutrophils (%) (Auto) 64.5, Lymphocytes (%) (Auto) 23.7L, Monocytes (%) (Auto) 7.1H, Eosinophils (%) (Auto) 4.0H, Basophils (%) (Auto) 0.2, Neutrophils # (Auto) 6.2, Lymphocytes # (Auto) 2.3, Monocytes # (Auto) 0.7, Eosinophils # (Auto) 0.4, Basophils # (Auto) 0.0, Nucleated Red Blood Cells % (auto) 0.0, Anion Gap 7L, Glomerular Filtration Rate > 60.0, Calcium Level 7.8L, Magnesium Level 2.0 CBC/BMP Laboratory Tests 08/19/19 12:05 08/20/19 05:30 FSBS Laboratory Tests Test 08/19/19 12:59 08/19/19 18:19 08/19/19 20:24 Range/Units Bedside Glucose (Misc Panel) 155 171 139 83-110 MG/DL Microbiology Microbiology 08/17/19 Respiratory Virus Panel (PCR) (LUISANA) - Final, Complete 08/16/19 Urine Culture - Final, Complete 08/16/19 Blood Culture - Preliminary, Resulted No Growth after 72 hours. All specime... Discharge Medications Scheduled Aspirin (Aspir 81) 81 Mg Tablet.dr, 81 MG PO DAILY, (Reported) Bisacodyl (Bisacodyl) 10 Mg Supp.rect, 10 MG MS DAILY, (Reported) Insulin Glargine (Lantus) 100 Unit/1 Ml Vial, 10 UNIT INJ DAILY Metoprolol Succinate (Metoprolol Succinate) 25 Mg Tab.er.24h, 25 MG PO DAILY, (Reported) Milk Of Magnesia (Milk of Magnesia) 2,400 Mg/10 Ml Oral.susp, 10 ML PO DAILY, (Reported) Moxifloxacin HCl (Moxifloxacin HCl) 400 Mg Tablet, 400 MG PO DAILY@06 Zinc Oxide (Zinc Oxide 20% Oint) 56.7 Gm Oint...g., 1 APPLIC TOP BID, (Reported) APPLY TO ALL DENUDED/ EXCORIATED AREAS OF SKIN Scheduled PRN Acetaminophen (Acetaminophen) 325 Mg Tablet, 325 MG PO for BID, (Reported) MORNING AND NIGHT FOR PAIN Acetaminophen (Acetaminophen) 325 Mg Tablet, 650 MG PO Q4H PRN for PAIN, (Reported) Hydrocortisone ([place]) 1% Cream..g., 1 APPFUL TOP TID PRN for ITCHING, (Reported) Loperamide HCl (Imodium A-D) 2 Mg Tablet, 2 MG PO Q6H PRN for AFTER EACH LOOSE STOOL, (Reported) Mag Hydrox/Aluminum Hyd/Simeth (Maalox Maximum Strength Susp) 355 Ml Oral.susp, 30 ML PO Q4H PRN for NAUSEA, (Reported) Nitroglycerin (Nitroglycerin) 0.4 Mg Tab.subl, 0.4 MG SL NITRO PRN for CHEST PAIN, (Reported) Phenyleph/Pramoxin/Glycr/W.pet (Preparation H Cream) 26 Gm Cream..g., 1 APPLIC MS BID PRN for HEMORRHOIDS, (Reported) Sennosides/Docusate Sodium (Sennosides-Docusate Sodium Tab) 1 Each Tablet, 2 TAB PO BID PRN for CONSTIPATION, (Reported) Sodium Phosphate,[place]-Dibasic (Enema) 133 Ml Enema, 1 CHARO MS DAILY PRN for CONSTIPATION, (Reported) Allergies Coded Allergies: codeine (Verified Allergy, Severe, SOB, 08/16/19) Influenza Virus Vaccines (Verified Allergy, Unknown, 08/16/19) Penicillins (Verified Allergy, Unknown, 08/16/19) Sulfa (Sulfonamide Antibiotics) (Verified Allergy, Unknown, 08/16/19) morphine (Verified Allergy, Unknown, 08/16/19) GME ATTESTATION GME ATTESTATION My faculty preceptor for this patient encounter was physically present during the encounter and was fully available. All aspects of the patient interview, examination, medical decision making process, and medical care plan development were reviewed and approved by the faculty preceptor. The faculty preceptor is aware and concurs with the plan as stated in the body of this note and will attest to such by his/her cosignature. ATTENDING NOTE I, Deidra Wyman, have independently examined this patient and performed my own physical exam, as well as reviewed the documentation and edited where necessary. I have discussed in detail with the resident / student the findings and plan of treatment as documented by the resident / student and edited their note. I agree with their findings and treatment plan and have edited their documentation. I will continue to follow the patient during this hospital stay. Time spent on discharge 35 minutes CONNOR LOVELL S-III Aug 20, 2019 11:46 DEIDRA WYMAN MD Aug 20, 2019 16:35
== END 2019-08-20 13:56 | DRG 637 ==
LOC: M ED 18:00 → EDBD 18:00 → M ED INP 21:46 → M ICU 23:00 → M PCU 08-18 04:55 → M MSPAV 08-20 05:37
PROVIDERS: ADMIT Internal Medicine; ATTEND Internal Medicine
DX: E11.65 Type 2 diabetes mellitus with hyperglycemia (principal); E11.00 Type 2 diabetes mellitus with hyperosmolarity without nonketotic hyperglycemic-hyperosmolar coma (NKHHC); E87.0 Hyperosmolality and hypernatremia; N17.9 Acute kidney failure, unspecified; I48.0 Paroxysmal atrial fibrillation; F03.90 Unspecified dementia, unspecified severity, without behavioral disturbance, psychotic disturbance, mood disturbance, and anxiety; I10 Essential (primary) hypertension; E78.5 Hyperlipidemia, unspecified; Z79.82 Long term (current) use of aspirin; Z79.899 Other long term (current) drug therapy; Z88.5 Allergy status to narcotic agent; Z88.0 Allergy status to penicillin; Z88.2 Allergy status to sulfonamides; Z88.7 Allergy status to serum and vaccine; D72.829 Elevated white blood cell count, unspecified

== ENCOUNTER → 2019-08-16 | Outpatient (REF) | payer MEDICARE, MEDICAID ==
[~2019-08-16] MED LIST changes: +ACET1TAB55 PO; +ALA1CRE TOP; +APAP325T4 PO; +ASPI81TA85 PO; +BISA10SU27 PR; +ENEMENE PR; +INSULADS INJ; +LOPE2TAB12 PO; +MAALSUS19 PO; +METO1TAB32 PO; +MOM30SS PO; +NITR0.4S14 SL; +PREPCRE PR; +SENN-3 PO; +ZINC60OI TOP
== END ==
LOC: SKLAB4 16:46
PROVIDERS: ATTEND Family Medicine
DX: R73.09 Other abnormal glucose (principal)

== ENCOUNTER → 2019-09-06 | Outpatient (REF) | payer MEDICARE, MEDICAID ==
[~2019-09-06] MED LIST changes: +ACET1TAB55 PO; +ALA1CRE TOP; +APAP325T4 PO; +ASPI81TA85 PO; +BISA10SU27 PR; +ENEMENE PR; +INSULADS INJ; +LOPE2TAB12 PO; +MAALSUS19 PO; +METO1TAB32 PO; +MOM30SS PO; +MOXI400T11 PO; +NITR0.4S14 SL; +PREPCRE PR; +SENN-3 PO; +ZINC60OI TOP
[2019-09-06 08:22] LABS: BASO # 0.1 10^3/uL (0.0-0.2); BASO % 0.7 % (0.0-1.0); EOS # 0.3 10^3/uL (0.0-0.5); EOS % 4.4 % (0.0-3.0); HEMATOCRIT 46.9 % (36.0-47.0); HEMOGLOBIN 15.1 g/dl (12.0-15.5); LYMPH # 2.3 10^3/uL (1.5-5.0); MEAN CORPUSCULAR HEMOGLOBIN 30.4 pg (27.0-33.0); MEAN CORPUSCULAR HGB CONC 32.2 g/dl (32.0-36.5); MEAN CORPUSCULAR VOLUME 94.6 fl (80.0-96.0); MONO # 0.6 10^3/uL (0.0-0.8); MONO % 8.5 % (0.0-5.0); NEUTROPHILS % 54.1 % (36.0-66.0); PLATELET COUNT, AUTOMATED 142 10^3/uL (150-450); RED BLOOD COUNT 4.96 10^6/uL (4.00-5.40); WHITE BLOOD COUNT 7.3 10^3/uL (4.0-10.0)
== END ==
LOC: SKLAB4 08:13
PROVIDERS: ATTEND Family Medicine
DX: E03.9 Hypothyroidism, unspecified (principal); G20 Parkinson's disease